=== PATIENT | male | born 1990 | race Caucasian/White ===

== ENCOUNTER 2020-02-29 19:17 | Emergency (ER) | payer SELFPAY ==
[2020-02-29 19:18] VITALS: BP 130/87; PULSE 77; RESP 16; TEMP 36.3; O2SAT 99; BMI 22.1
[2020-02-29 19:28] VITALS: BP 121/81; PULSE 67; RESP 14; O2SAT 99
--- NOTE | 2020-02-29 19:53 | ED.VIS.GEN ---
History of Present Illness Chief Complaint: Chest Pain Informant: Patient Narrative: Patient presents the emergency department with a left-sided sharp chest pain and a cough. He tells me symptoms began last night after he woke up to go in for his third shift work. He states his cough is not that bad but he is producing some phlegm and occasionally has some bright red blood mixed with it. Cough seems to make the pain worse in the chest as well as palpation. No fevers. History of asthma for which he takes albuterol as needed. He states normally his asthma is very well controlled. He has not felt wheezing. He does note some nasal congestion. He denies any nosebleed. He left work last night after discussion with his employer. One concern was Covid. - Past Medical History (1) Sinus bradycardia Status: Chronic (2) WPW (Tpwoa-Lxpliaeuf-Bcoku syndrome) Status: Chronic Past Medical History - Allergies and Home Meds Allergies/Adverse Reactions: Allergies azithromycin Allergy (Severe, Verified 02/29/20 19:20) Anaphylaxis diphenhydramine HCl [From Benadryl] Allergy (Severe, Verified 02/29/20 19:20) Rash Penicillins Allergy (Severe, Verified 02/29/20 19:20) Hives ibuprofen Adverse Reaction (Severe, Verified 02/29/20 19:20) Increased Asthma symptoms Primary Care Physician: Care Physician,No Primary [Primary Care Provider] - Prior records reviewed: Yes Past Medical History: - - Asthma Surgical History: noncontributory Smoking Status: Never smoker Alcohol: Rare Drugs: None Review of Systems General: Denies: Chills, Fever, Sweats Eyes: Denies: Visual changes - bilaterally, Diplopia ENT: Denies: Rhinorrhea, Sore throat Cardiovascular: Reports: Chest pain. Denies: Palpitations Respiratory: Reports: Cough, Sputum, - - intermittent red streaks in sputum. Denies: Dyspnea, Dyspnea on exertion Gastrointestinal: Denies: Abdominal pain, Nausea, Vomiting, Diarrhea, Melena, Hematochezia Genitourinary: Denies: Dysuria, Hematuria, Frequency Musculoskeletal: Denies: Back pain, Extremity Pain Skin: Denies: Rash, Wounds Neurological: Denies: Headache, Weakness, Numbness Physical Exam Vital Signs/Narrative: Vital Signs Temp Pulse Resp BP Pulse Ox 02/29/20 19:28 67 14 121/81 H 99 02/29/20 19:18 97.4 F L 77 16 130/87 H 99 Inital Vital Signs reviewed: Yes General: Well nourished, Well developed, No Acute Distress Head: Normocephalic, Atraumatic Eyes: Perrl, EOMI ENT: Moist mucous membranes, No rhinorrhea Neck: Supple, Nontender Cardiovascular: Regular rate, Regular rhythm, No murmurs Respiratory: No distress, CTA bilaterally, Chest nontender, Chest tenderness - Intermittent hemoptysis tenderness to palpation to the left mid and lower costochondral border. Reproduces his pain. Abdomen: Soft, Nontender, Nondistended, Normal bowel sounds Back: Nontender, Normal Inspection Extremities: Nontender, No edema Skin: Normal color, No rash Neurological: Alert, Oriented x3, Cranial nerves II-XII grossly intact, Normal Strength, Normal Sensation Psychological: Normal affect, Normal Mood Diagnostic/Tx/Re-eval Clinical Impression(s) from Imaging Studies Chest X-Ray 02/29/20 20:00 IMPRESSION: Left apical capping. Question small left effusion. Otherwise unremarkable radiograph. Electronically Signed: Manuel Herring, at 21:45 EDT Tel , Service support , - EKG Initial EKG Interpretation: Sinus Rhythm - EKG demonstrates a normal sinus rhythm at a rate of 60. I do not see a delta wave. He reports a history of WPW - Medical Decision Making I think the patient most likely has a viral rhonchi to us with musculoskeletal chest pain. His Covid test will be pending. I do not see indication for antibiotics at this time. Follow-up with primary care return if worsening or concerns I will take him off of work due to the possibility of COVID-19 ED Disposition - Plan for ED Patient: Disposition: Home or Assisted Living Diagnosis: Bronchitis Instructions: Acute Bronchitis Referrals: Robyn High MD [STAFF PHYSICIAN] - As Needed (for primary care)
--- NOTE | 2020-02-29 19:58 | EKG12_ITS ---
Test Reason : CP Blood Pressure : / mmHG Vent. Rate : 060 BPM Atrial Rate : 060 BPM P-R Int : 122 ms QRS Dur : 094 ms QT Int : 390 ms P-R-T Axes : 054 071 027 degrees QTc Int : 390 ms Normal sinus rhythm Normal ECG Confirmed by SYLVIA VALDEZ, STEPHANIE ([id number]), editor index TAMARA KHALIL ([id number]) on 03/06/2020 11:53:55 AM Referred By: Confirmed By:STEPHANIE WARD MD
--- NOTE | 2020-02-29 20:00 | RAD_ITS ---
STUDY: X-RAY CHEST REASON FOR EXAM: Male, 29 years old. CHEST PAIN, SPITTING UP BLOOD TECHNIQUE: Single frontal view of the chest. COMPARISON: 07/03/2016 FINDINGS: Cardiac silhouette unremarkable. Pulmonary vascularity unremarkable. Aorta unremarkable. No focal airspace opacities. Reidentified left apical capping possible small left effusion. Upper abdomen unremarkable. Osseous structures intact. No pneumothorax. RAD/Chest 1 View (Portable) IMPRESSION: Left apical capping. Question small left effusion. Otherwise unremarkable radiograph. Electronically Signed: Manuel Herring, at 21:45 EDT Tel , Service support ,
[2020-02-29 20:19] VITALS: BP 115/69; PULSE 59; RESP 18; O2SAT 99
[2020-02-29 21:29] VITALS: BP 121/57; PULSE 57; RESP 16; O2SAT 99
[2020-02-29 22:01] VITALS: BP 113/74; PULSE 57; RESP 18; O2SAT 98
== END 2020-02-29 22:02 | disposition home or self-care (01) ==
PROVIDERS: Emergency Provider Emergency Medicine
DX: J40 Bronchitis, not specified as acute or chronic (principal); R04.2 Hemoptysis
CPT/HCPCS: 71045; 87635; 93005; 99283; A4216; U0003

== ENCOUNTER 2020-05-17 19:08 | Emergency (ER) | payer OTHER, SELFPAY ==
[2020-05-17 19:08] VITALS: BP 136/74; PULSE 72; RESP 16; TEMP 36.7; O2SAT 97
--- NOTE | 2020-05-17 19:34 | ED.VIS.URI ---
History of Present Illness Chief Complaint: Cough Informant: Patient Onset: Weeks - 1.5-2 Context: Gradual Onset Timing: Continuous Quality: Occasionally productive, yellow sputum, no blood Location: Chest Current Severity: Moderate Maximum Severity: Moderate Worsened by: - - Nothing Relieved by: - - Nothing Associated Symptoms: Nasal Congestion, Shortness of Breath, Chest Pain, Productive Cough, - - Fevers/chills. Negative for: Headache, Sinus Pressure, Nausea, Vomiting, Diarrhea Narrative: Patient states he has recently traveled to the [facility] twice. No contact with persons that he knows of with COVID-19, and he has not had it that he knows of. He states he has asthma, he lives in [place] some of the year and he does not have asthma issues when he is there, but when he is here the cold weather seems to trigger his asthma and he has mild issues almost daily. Now it is a little worse, not severe, but he is feeling tightness in his chest and some trouble breathing in context of what feels like a chest cold/bronchitis for the past 1.5-2 weeks. - Past Medical History (1) Asthma Status: Chronic (2) WPW (Sxgzs-Iqrwvypcv-Rrgzi syndrome) Status: Chronic Past Medical History - Allergies and Home Meds Allergies/Adverse Reactions: Allergies azithromycin Allergy (Severe, Verified 05/17/20 19:11) Anaphylaxis diphenhydramine HCl [From Benadryl] Allergy (Severe, Verified 05/17/20 19:11) Rash Penicillins Allergy (Severe, Verified 05/17/20 19:11) Hives ibuprofen Adverse Reaction (Severe, Verified 05/17/20 19:11) Increased Asthma symptoms Primary Care Physician: Care Physician,No Primary [Primary Care Provider] - Surgical History: noncontributory Smoking Status: Never smoker Review of Systems General: Reports: Chills, Fever - Low-grade up to 100.5, Malaise. Denies: Sweats Eyes: Denies: Visual changes - bilaterally, Diplopia ENT: Reports: Rhinorrhea - With congestion, no sinus pain. Denies: Bilateral ear pain, Sore throat Cardiovascular: Reports: Chest pain - Tightness. Denies: Palpitations Respiratory: Reports: Dyspnea, Cough, Sputum Gastrointestinal: Denies: Abdominal pain, Nausea, Vomiting, Diarrhea, Melena, Hematochezia Genitourinary: Denies: Dysuria, Hematuria, Frequency Musculoskeletal: Denies: Myalgias, Back pain, Swelling, Extremity Pain Skin: Denies: Rash, Wounds Neurological: Denies: Headache, Weakness, Numbness Physical Exam Vital Signs/Narrative: Vital Signs Temp Pulse Resp BP Pulse Ox 05/17/20 19:08 98.0 F 72 16 136/74 H 97 Inital Vital Signs reviewed: Yes General: Well nourished, Well developed Head: Normocephalic, Atraumatic Eyes: Perrl, EOMI Nose: Normal Inspection, No Rhinorrhea Mouth/Throat: Normal Inspection, No Posterior Erythema Neck: Supple, Nontender, No Lymphadenopathy, No Meningismus Cardiovascular: Regular rate, Regular rhythm, No murmurs Respiratory: No distress, Chest nontender, Wheezing. Negative for: Rales, Rhonchi Abdomen: Soft, Nontender, Nondistended, Normal bowel sounds Back: Nontender, Normal Inspection Extremities: Nontender, No edema Skin: Normal color, No rash, No Trauma Neurological: Alert, Oriented x3, Cranial nerves II-XII grossly intact, Normal Strength, Normal Sensation, Normal Gait Psychological: Normal affect, Normal Mood Diagnostic/Tx/Re-eval Clinical Impression(s) from Imaging Studies Chest X-Ray 05/17/20 20:23 IMPRESSION: Normal x-ray examination of the chest. Electronically Signed: Ventura Foster MD at 20:57 EST , Service support , - Medical Decision Making Patient feels better after a duo nebulizer treatment. His Covid test is negative and his chest x-ray is normal. No antibiotics indicated, but I think it is reasonable to treat him for an asthma exacerbation and prescribed him a rescue inhaler. He is in agreement and feels better and will be discharged home to follow-up with a PCP. Referred to the next doctor on the unassigned list. ED Disposition - Plan for ED Patient: Disposition: Home or Assisted Living Diagnosis: Acute asthmatic bronchitis Instructions: ED Asthma, Acute (Adult), ED Bronchitis with Wheezing (Adult) Prescriptions: Prednisone [Deltasone] 40 mg PO DAILY #10 tab Prescription Printed Albuterol Inhaler [Ventolin Hfa] 1 - 2 puff INHALATION Q4H PRN PRN #1 inhaler PRN Reason: Wheezing Prescription Printed Referrals: Abdon Castillo MD [STAFF PHYSICIAN] - 1-2 Weeks
[2020-05-17 19:42] VITALS: PULSE 63; RESP 16
[2020-05-17] MEDS: Ipratropium/Albuterol Sulfate 3 ML AMPUL.NEB INHALATION (19:42)
[2020-05-17 19:46] VITALS: O2SAT 96
--- NOTE | 2020-05-17 20:23 | RAD_ITS ---
STUDY: X-RAY CHEST REASON FOR EXAM: Male, 29 years old. chest congestion,cough and no energy since . HX OF ASTHMA TECHNIQUE: Single PA view of the chest. COMPARISON: 02/29/2020. FINDINGS: The lungs are clear and expanded. There is no demonstrated pleural abnormality. Normal size heart. Normal mediastinum and zachary. Normal visualized pulmonary arteries. Normal visualized aortic arch and descending thoracic aorta. Normal visualized thoracic spine. Normal visualized ribs, clavicles, and shoulders. There is no demonstrated abnormality of the visualized soft tissue structures of the upper abdomen. RAD/Chest 1 View (Portable) IMPRESSION: Normal x-ray examination of the chest. Electronically Signed: Ventura Foster MD at 20:57 EST , Service support ,
[2020-05-17 21:36] VITALS: BP 100/65; PULSE 51; PULSE 53; RESP 16; O2SAT 98; O2SAT 99
[2020-05-17] MEDS: predniSONE 20 MG Tablet 40 MG PO (21:38)
== END 2020-05-17 21:39 | disposition home or self-care (01) ==
PROVIDERS: Emergency Provider Emergency Medicine
DX: Z79.899 Other long term (current) drug therapy (principal); I45.6 Pre-excitation syndrome; R50.9 Fever, unspecified; J45.901 Unspecified asthma with (acute) exacerbation
CPT/HCPCS: 71045; 87426; 94640; 99283

== ENCOUNTER → 2020-06-05 16:58 | Outpatient (CLI) | payer OTHER, SELFPAY ==
[2020-06-05 16:42] VITALS: BMI 21.3
--- NOTE | 2020-06-05 17:00 | RAD_ITS ---
STUDY: X-RAY - RIGHT HAND, ATTENTION INDEX FINGER REASON FOR EXAM: Male, 29 years old. right index finger caught in machine at work 2 days ago, pain/abrasion TECHNIQUE: 3 view(s) of the finger were obtained. COMPARISON: None. FINDINGS: Normal metacarpal head. Normal metacarpophalangeal joint. Normal proximal phalanx. Normal middle phalanx. Normal distal phalanx. Normal proximal interphalangeal joint. Normal distal interphalangeal joint. RAD/Finger(s) Min 2 Views IMPRESSION: Normal x-ray examination of the finger. Electronically Signed: Joseph Parker MD at 19:58 EST , Service support ,
== END ==
LOC: MTRAD 17:00
PROVIDERS: Referring Provider Physician Assistant Surgical; Visit Provider Physician Assistant Surgical
DX: S60.021A Contusion of right index finger without damage to nail, initial encounter (principal); X58.XXXA Exposure to other specified factors, initial encounter; Y93.9 Activity, unspecified; Y92.9 Unspecified place or not applicable; Y99.9 Unspecified external cause status
CPT/HCPCS: 73140

== ENCOUNTER 2024-12-03 20:33 | Emergency (ER) | payer OTHER, MEDICAID, SELFPAY ==
[2024-12-03 20:34] VITALS: BP 144/79; PULSE 71; RESP 16; TEMP 37.2; O2SAT 99; BMI 19.1
--- NOTE | 2024-12-03 21:21 | EDS_ITS ---
HPI History of Present Illness HPI Narrative: Patient presents with a laceration to his left calf that occurred today. Patient states that occurred this morning while he was at work. Patient states that he applied pressure to the area. Patient states the bleeding has been persistent. 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 Patient states he was told he may need to come for sutures. Patient states his last tetanus was approximately 4 years ago. Patient denies any pare sthesias or weakness. Patient denies any other injuries. Chief Complaint: Laceration Informant: patient Occured/Mechanism Comment: Cut on a piece of metal Onset/Context/Timing Onset: Today Context: Sudden Onset Timing: Continuous Location: Left calf Worsened by: Nothing Relieved by: Nothing Narrative Tetanus Immunization: <5 years [facility] Medical History (Updated 12/03/24 @ 22:[address] Kale Corrales DO) Asthma Sinus bradycardia WPW (Wamnt-Srdvjqoqu-Nuesf syndrome) Home Medications Medication Instructions Recorded Last Taken Type albuterol sulfate 90 mcg/actuation 2 puff inhalation Q 6H PRN Wheezing 04/15/18 Unknown History aerosol inhaler (Ventolin HFA) albuterol sulfate 90 mcg/actuation 1 - 2 puff inhalati on Q4H PRN PRN 05/17/20 Unknown Rx aerosol inhaler Wheezing ##1 ondansetron HCl 4 mg tablet 4 mg PO Q8H PRN nausea and 07/25/20 Unknown Rx (Zofran) vomiting #7 tabs Allergy/AdvReac Type Severity Reaction Status Date / Time azithromycin Allergy Severe Anaphylaxis Verified 07/25/20 13:45 diphenhydramine HCl (From Allergy Severe Rash Verified 07/25/20 13:45 Benadryl) Penicillins Allergy Severe Hives Verified 07/25/20 13:45 ibuprofen AdvReac Severe Increased Verified 07/25/20 13:45 Asthma symptoms Family History Other Asthma Diabetes Heart disease Hypertension Surgical History History of cholecystectomy History of appendectomy History of cardiac radiofrequency ablation (~1997) Social History Smoking Status: Never smoker Smokeless tobacco user: chewing tobacco alcohol intake: never ROS ROS ED Constitutional Constitutional ED: Denies chills or fever(s) Eyes Eyes: Denies blurry vision or change in vision ENT ENT ED: Denies rhinorrhea or sore throat Cardiovascular Cardiovascular: Denies chest pain or palpitations Respiratory/Chest Respiratory/Chest: Denies cough or dyspnea Gastrointestinal Gastrointestinal: Denies nausea or vomiting Genitourinary Genitourinary ED: Denies dysuria or hematuria Musculoskeletal Musculoskeletal: Denies back pain or neck pain Integumentary Denies abscess or rash Neurologic Neurologic: Denies headache(s) or weakness Allergic/Immunologic Allergic/Immunologic ED: Denies mouth swelling or urticaria EXAM Physical Exam Const Vital Signs: 12/03/24 20:34 Temperature 98.9 F Temperature Source Oral Pulse Rate 71 Respiratory Rate 16 Blood Pressure 144/79 H Blood Pressure Mean 100 Pulse Ox 99 Oxygen Delivery Method Room Air Positive well nourished and well developed General Appearance ED: well developed and NAD HEENT Reports moist mucous membranes Neck full ROM and supple Extremity Extremity Narrative: There is a 1 cm full-thickness linear laceration over the posterior aspect of the left calf. There is mild bleeding noted. There is mild gapping of the wound margins. There are no foreign bodies noted. There is mild tenderness. There is no erythema or warmth noted. There is full range of motion of the left lower extremity. Neuro oriented x3, CN's II-XII intact bilaterally, moves all extremities and no sensory deficits noted Sensorium / Orientation: alert Motor Exam: strength 5/5 throughout MDM MDM MDM Narrative Medical decision making narrative: The wound was cleaned and irrigated with copious amounts of normal saline. The wound was anesthetized with 1% lidocaine with epinephrine locally. The wound was closed with 1 simple interrupted #4-0 nylon suture under sterile technique. Patient tolerated the procedure well. Bacitracin dressing was applied. Patient was instructed to keep the wound clean and dry. Patient was instructed to keep his leg elevated. Patient was instructed to follow-up with his primary care physician in 5 to 7 days. Patient was instructed to return if worse in any way. Patient understood and was agreeable with the plan. All questions were answered. Procedures Lacerations Left calf: Length: 1 cm Depth: Sub Q Shape: Linear Prep: Sterile Conditions Laceration repair: Irrigated, Lidocaine with epi, Local and Skin sutures Number of Sutures/[place]: 1 Suture Information: Ethilon, Simple and 4-0 Discharge Plan Triage Chief Complaint: Laceration ED Provider: Kale Corrales Dx/Rx/DC Orders Clinical Impression: Laceration of left calf without complication, Elevated blood pressure reading Instructions: ED Laceration, All Closures, ED Laceration Extremity Prescriptions: No Action Ventolin HFA 90 mcg/actuation HFA aerosol inhaler 2 puff INHALATION Q6H PRN (Reason: Wheezing) ondansetron HCl [Zofran] 4 mg tablet 4 mg PO Q8H PRN (Reason: nausea and vomiting) Qty: 7 0RF albuterol sulfate 1 INHALER inhaler 1 - 2 puff INHALATION Q4H PRN PRN (Reason: Wheezing) Qty: 1 0RF Primary Care Provider: Care Physician,No Primary Referrals: Jeremiah Caputo MD [Med Staff - Auto Driver] - 7 Days for suture removal Care Physician,No Primary [Primary Care Provider] - Print Language: Japanese Disposition Disposition: Home, Self Care
--- OUTSIDE RECORDS SUMMARY | 2024-12-03 21:21 | XMS RPT_ITS | CCD ---
Author Organization [facility] Care Team Providers Care Ticket Dispenser Changer Name Role Phone PHYSICIAN, NONE Primary Care Unavailable JORGE RICHARDSON Admitting Unavailable JORGE RICHARDSON Attending Unavailable ALFONSO KHALIL Consulting Unavailable ROXIE TRINH Consulting Unavailable ZOHREH HEIN Consulting Unavailable JORGE MORENO Consulting Unavailable ALFONSO KHALIL Admitting Unavailable ALFONSO KHALIL Attending Unavailable PHYSICIAN, NONE Primary Care Unavailable ROXIE TRINH Attending Unavailable PHYSICIAN, NONE Primary Care Unavailable PHYSICIAN, NONE Primary Care Unavailable KELSEY MONSALVE Attending Unavailable ROXIE TRINH Referring Unavailable BEN BAIN Admitting Unavailable BEN BAIN Attending Unavailable BEN BAIN Primary Care Unavailable NO, DOCTOR ON Consulting Unavailable MELVINA ASIF DO Admitting Unavailable MELVINA ASIF DO Attending Unavailable NO, DOCTOR ON Referring Unavailable MELVINA ASIF DO Primary Care Unavailable NO, DOCTOR ON Consulting Unavailable GLADSTONE, SAMIRA S Admitting Unavailable GLADSTONE, SAMIRA S Attending Unavailable GLADSTONE, SAMIRA S Primary Care Unavailable NO, DOCTOR ON Consulting Unavailable NO, DOCTOR ON Referring Unavailable Agapito Lagunas MD Primary Care Provider Pcp, None Primary Care Provider UnavailKya Hilliard Attending Unavailable MICHELLE HERRERA Attending Unavailable MICHELEL HERRERA Referring Unavailable PCP, NONE Primary Care Unavailable GRISELDA MORFIN Primary Care Unavailable CARLOS PEREZ Attending Unavailable ANUSHKA ALEGRIA Attending Unavailable AGAPITO LAGUNAS Referring Unavailable PCP, NONE Primary Care Unavailable NANCY BARFIELD Attending Unavailable NANCY BARFIELD Referring Unavailable NAVJOT, GRISELDA Primary Care Unavailable OZKAZANC, ISMET Referring Unavailable OZKAZANC, ISMET Attending Unavailable JAVIER, MICHELLE Attending Unavailable MICHELLE HERRERA Referring Unavailable PCP, NONE Primary Care Unavailable NAVJOT, GRISELDA Attending Unavailable NAVJOT, GRISELDA Primary Care Unavailable NAVJOT, GRISELDA Attending Unavailable NAVJOT, GRISELDA Primary Care Unavailable DAMARGIET, NANCY Attending Unavailable DAUBERT, NANCY Referring Unavailable OZKAZANC, ISMET Primary Care Unavailable DAMARGIET, NANCY Attending Unavailable PCP, NONE Referring Unavailable OZKAZANC, ISMET Attending Unavailable OZKAZANC, ISMET Referring Unavailable OZKAZANC, ISMET Primary Care Unavailable OZKAZANC, ISMET Admitting Unavailable NAVJOT, GRISELDA Attending Unavailable NAVJOT, GRISELDA Primary Care Unavailable NAVJOT, GRISELDA Primary Care Unavailable ANTONIETA JONES Attending Unavailable PCP, NONE Primary Care Unavailable MIXON, ELO Attending Unavailable MIXON, ELO Admitting Unavailable Allergies Allergy Classification Reported Allergen(s) Allergy Type Date of Onset Reaction(s) Facility (1 source) Aspirin Drug Allergy [facility] Repository (1 source) diphenhydrAMINE Drug Allergy [facility] Repository (1 source) Penicillin Drug Allergy [facility] (2 sources) Penicillins Propensity to adverse reactions to drug 05-10-20 Hives, Edema [facility] (2 sources) Benadryl Allergy Propensity to adverse reactions to drug 05-10-20 Formerly named [facility] Medications Current Medications Medication Drug Class(es) Dates Sig (Normalized) Sig (Original) azithromycin 250 mg oral tablet (1 source) Macrolide Antimicrobial Start: 05-26-2024 End: 05-31-2024 azithromycin (Z-OANH) 250 MG tablet dose pack Indications: Lower respiratory infection 2 tablets on Day 1, then 1 tab daily for 4 days (Days 2 to 5) 6 tablet 05/26/2024 05/31/2024 Active pantoprazole 40 mg delayed release oral tablet (2 sources) Proton Pump Inhibitor Start: 05-10-2024 take 1 tablet by mouth once daily before breakfast pantoprazole (PROTONIX) 40 MG tablet Take 1 tablet by mouth every morning (before breakfast). 30 tablet 3 05/10/2024 Active predniSONE 20 mg oral tablet (1 source) Start: 05-26-2024 End: 06-02-2024 take 1.5 tablets by mouth twice daily predniSONE (DELTASONE) 20 MG tablet Take 1.5 tablets by mouth two times a day for 7 days. 21 tablet 05/26/2024 06/02/2024 Active Completed/Discontinued Medications Medication Drug Class(es) Dates Sig (Normalized) Sig (Original) Acetaminophen (1 source) Start: 05-26-2024 End: 05-26-2024 735 mg (15 mg/kg 49 kg), Intravenous, Administer over 15 Minutes, On Fri05/26/24 at 1352, ONCE, 1 dose [id number] 60 actuat albuterol 0.09 mg/actuat metered dose inhaler (5 sources) beta2-Adrenergic Agonist Start: 05-26-2024 End: 05-26-2024 1 packet, Inhalation, PRIOR TO DISCHARGE, 1 dose, On Fri05/26/24 at 1606, packet given to pt. per physician for home self.administrati on Start: 05-26-2024 End: 05-26-2024 2.5 mg, Nebulization, NOW, 1 dose, On Fri05/26/24 at 1602 Start: 05-25-2024 Albuterol Sulf ate 108 (90 Base) MCG/ACT AEPB Inhale 1 Inhalation into the lungs as needed. 1 each 05/25/2024 Active Start: 05-18-2024 End: 05-18-2024 2.5 mg, Nebulization, ONCE R T, 1 dose, On Fri05/18/24 at 1345 Start: 05-17-2024 Albuterol Sulf ate 108 (90 Base) MCG/ACT AEPB Inhale 1 Inhalation into the lungs as needed. 1 each 3 05/17/2024 Active albuterol 0.833 mg/ml / ipratropium bromide 0.167 mg/ml inhalation solution (2 sources) Anticholinergic, beta2-Adrenergic Agonist Start: 05-26-2024 End: 05-26-2024 6 mL, Nebulization, Once, 1 dose, On Fri05/26/24 at 1316 LOCM iohexol (OMNIPAQUE 350MG/ML) injection 75 mL (1 source) Start: 05-26-2024 End: 05-26-2024 take 75 mL by mouth once 75 mL, Intravenous, ONCE, 1 dose, On Fri05/26/24 at 1305, PO dose for age 13 years to 15 years: Mix 21 cc of Omnipaque 350 in water/juice/clear liquid (non carbonated) to total of 600 cc (20oz). Give 2 doses of 300 cc 15 minutes apart. Scan time 30-60 minutes after first dose. PO dose for age 15 years to 18 years: Mix 28 cc of Omnipaque 350 in water/juice/clear liquid (non carbonated) to total of 800 cc (27oz). Give 2 doses of 400 cc 15 minutes apart. Scan time 30-60 minutes after first dose. PO dose for age > 18 years: Mix 50 cc of Omnipaque 350 in water/juice/clear liquid (non carbonated) to total of 950 cc (32oz). Give 2 doses of 475 cc 15 minutes apart. Scan time 30-60 minutes after first dose., Radiology methylPREDNISolone 125 mg injection (1 source) Corticosteroid Start: 05-26-2024 End: 05-26-2024 60 mg, Intravenous, NOW, 1 dose, On Fri05/26/24 at 1345 50 ml sodium chloride 9 mg/ml injection (1 source) Start: 05-26-2024 End: 05-26-2024 1,000 mL, Intravenous, Administer over 2 Hours, On Fri05/26/24 at 1345, ONCE, 1 dose Problems Active Problems Problem Classification Problem Date Documented Da te Episodic/Chronic Anxiety disorders (1 source) Generalized anxiety disorder; Translations: [Generalized anxiety disorder] Onset: 06-04-2024 Chronic Asthma (9 sources) Mild intermittent asthma; Translations: [Mild intermittent asthma, uncomplicated] Onset: 05-10-2024 05-18-2024 Chronic Immunizations and screening for infectious disease (1 source) Encounter for screening for infections with a predominantly sexual mode of transmission; Translations: [Encounter for screening for infections with a predominantly sexual mode of transmission] Onset: 10-29-2024 Episodic Miscellaneous mental health disorders (1 source) Primary insomnia; Translations: [Primary insomnia] Onset: 06-04-2024 Chronic Mood disorders (1 source) Major depressive disorder, recurrent, moderate; Translations: [Major depressive disorder, recurrent, moderate] Onset: 06-04-2024 Chronic Nonspecific chest pain (1 source) Chest pain Onset: 09-22-2024 Episodic Other gastrointestinal disorders (2 sources) Loose stool; Translations: [Other fecal abnormalities] Onset: 05-17-2024 05-17-2024 Episodic Other lower respiratory disease (1 source) Lower respiratory tract infection; Translations: [Unspecified acute lower respiratory infection] 05-26-2024 Episodic Other nutritional; endocrine; and metabolic disorders (4 sources) Weight loss; Translations: [Abnormal weight loss] Onset: 05-10-2024 Resolved: 05-17-2024 05-17-2024 Episodic Substance-related disorders (1 source) Nicotine dependence, unspecified, uncomplicated; Translations: [Nicotine dependence, unspecified, uncomplicated] Onset: 05-26-2024 Chronic Unclassified (1 source) Contact with and (suspected) exposure to covid-19; Translations: [Contact with and (suspected) exposure to covid-19] Onset: 05-26-2024 Past or Other Problems Problem Classification Problem Date Documented Da te Episodic/Chronic Abdominal pain (5 sources) Epigastric pain; Translations: [Epigastric pain] Onset: 05-10-2024 Resolved: 05-17-2024 05-17-2024 Episodic Acute bronchitis (2 sources) Acute bronchiolitis due to respiratory syncytial virus; Translations: [Acute bronchiolitis due to respiratory syncytial virus] Onset: 05-26-2024 05-26-2024 Episodic Allergic reactions (2 sources) Allergy status to penicillin; Translations: [Allergy status to other drugs, medicaments and biological substances status] Onset: 05-26-2024 Episodic Lymphadenitis (1 source) Localized enlarged lymph nodes; Translations: [Localized enlarged lymph nodes] Onset: 05-26-2024 Episodic Other aftercare (1 source) Other half-way (current) drug therapy; Translations: [Other vermin exterminator (current) drug therapy] Onset: 05-26-2024 Episodic Other gastrointestinal disorders (1 source) Other fecal abnormalities; Translations: [Other fecal abnormalities] Onset: 05-17-2024 Episodic Other lower respiratory disease (1 source) Personal history of other diseases of the respiratory system; Translations: [Personal history of other diseases of the respiratory system] Onset: 05-26-2024 Episodic Other nutritional; endocrine; and metabolic disorders (1 source) Abnormal weight loss; Translations: [Abnormal weight loss] Onset: 05-17-2024 Episodic Other nutritional; endocrine; and metabolic disorders (1 source) Body mass index (BMI) 19.9 or less, adult; Translations: [Body mass index (BMI) 19.9 or less, adult] Onset: 05-26-2024 Episodic Other screening for suspected conditions (not mental disorders or infectious disease) (1 source) Encounter for screening for lipoid disorders; Translations: [Encounter for screening for lipoid disorders] Onset: 05-15-2024 Episodic Results Test Name Value Interpretation Reference Range Facil ity GC AND CHLAMYDIA AMPLIFIED P ROBEon 10-29-2024 GC AND CHLAMYDIA AMPLIFIED PROBE GC AMPLIFIED AR Negative Negative CHLAMYDIA, DNA PROBE Negative Negative Normal Negative [facility] Comment on above: Performed By: #### 4 [id number], [id number], [id number], [id number] #### [place] [address] [place] HEPATITIS B SURFACE ANTIBODY on 10-29-2024 HEPATITIS B SURFACE ANTIBODY Non-Reactive Normal Nonreactive [facility] Comment on above: Performed By: #### 4 [id number], [id number], [id number], [id number] #### [place] [address] [place] HEPATITIS B SURFACE ANTIGENo n 10-29-2024 HEP B SURF AG Non-Reactive Normal [facility] Comment on above: Performed By: #### 4 [id number], [id number], [id number], [id number] #### [address] [address] [place] HEPATITIS C ANTIBODYon 10-29 HEPATITIS C ANTIBODY Non-Reactive Normal Nonreac tive, Indeterminate [facility] Comment on above: Performed By: #### 4 [id number], [id number], [id number], [id number] #### [address] [address] [place] HIV ANTIBODY - GENESISon HIV-1 AND HIV-2 ANTIBODIES Non-Reactive Normal Nonreactive [facility] Comment on above: Result Comment: No d etectable HIV-1p24 Antigen or HIV-1/HIV2 antibodies. If recent HIV exposure is suspected or reported, conduct HIV-1 ISAAC or request a new specimen and repeat the algorithm according to CDC guidance, available at: http://www.cdc.gov/hiv/guidelines Guidelines and Recommendations HIV/AIDS CDC These guidelines are intended for clinicians, public health professionals, program managers in clinical and non-clinical settings, persons at risk for HIV infection, and the general public. www.cdc.gov Performed By: #### 4 [id number], [id number], [id number], [id number] #### [address] [place] [address] TREPONEMAL PALLIDUM ANTIBODY on 10-29-2024 SYPHILIS TREPONEMA ANTIBODY Non-Reactive Normal [facility] Comment on above: Performed By: #### 4 [id number], [id number], [id number], [id number] #### [address] TRICHOMONAS AMPLIFIED PROBEo n 10-29-2024 TRICHOMONAS AMPLIFIED PROBE Negative Normal Negative [facility] Comment on above: Performed By: #### 4 [id number], [id number], [id number], [id number] #### [address] BNPon 05-26-2024 Interpretation and review of laboratory results Normal [facility] Nucleated RBC/100 WBC (Bld) [Ratio] 81 pg/mL NINF - 299 pg/mL [facility] Comment on above: Negative: Heart Fail ure Unlikely [facility] BRAIN NATRIURETIC PEPTIDEon 05-26-2024 Natriuretic peptide B (Bld) [Mass/Vol] 81 pg/mL Normal <=299 [facility] Comment on above: Result Comment: Nega tive: Heart Failure Unlikely Performed By: #### 4 [id number], [id number], [id number], [id number] #### [address] CBC AND DIFFERENTIALon 05-26 ABSOLUTE BASOPHIL 0.0 x10*3/uL Normal 0.0-0.1 [facility] Comment on above: Performed By: #### 4 [id number], [id number], [id number], [id number] #### [address] ABSOLUTE EOSINOPHIL 0.2 x10*3/uL Normal 0.1-0.3 [facility] Comment on above: Performed By: #### 4 [id number], [id number], [id number], [id number] #### [address] ABSOLUTE IMMATURE GRANULOCYTES 0.0 x10*3/uL Normal 0.0-0.1 [facility] Comment on above: Performed By: #### 4 [id number], [id number], 92185969, [id number] #### [address] ABSOLUTE LYMPH 1.0 x10*3/uL Low 1.2-3.3 [facility] Comment on above: Performed By: #### 4 [id number], 75492907, 02194168, [id number] #### [address] ABSOLUTE MONO 1.3 x10*3/uL High 0.2-0.6 [facility] Comment on above: Performed By: #### 4 [id number], [id number], [id number], [id number] #### [address] ABSOLUTE NEUTROPHIL 8.4 x10*3/uL High 2.4-6.6 [facility] Comment on above: Performed By: #### 4 3486084, 62446511, 07676978, 30008901 #### [address] Basophils/100 WBC (Bld) 0.4 % Normal [facility] Comment on above: Performed By: #### 4 [id number], 36048116, 60131899, 70368500 #### [address] Eosinophils/100 WBC (Bld) 1.4 % Normal [facility] Comment on above: Performed By: #### 4 [id number], 55320137, 48624994, [id number] #### [address] Erythrocyte distribution width (RBC) [Ratio] 12.6 % Normal 11.5-14.5 [facility] Comment on above: Performed By: #### 4 3961990, 06775249, 59811477, 02115070 #### [address] Hematocrit (Bld) [Volume fraction] 45.4 % Normal 37.7-51.1 [facility] Comment on above: Performed By: #### 4 6120357, 91956784, 07127886, [id number] #### [address] Hemoglobin (Bld) [Mass/Vol] 15.4 g/dL Normal 12.8-17.7 [facility] Comment on above: Performed By: #### 4 7794987, 31292710, 50979813, 53113944 #### [address] Immature granulocytes/100 WBC (Bld) 0.3 % Normal [facility] Comment on above: Performed By: #### 4 6914550, 44370138, 62920302, 56317409 #### [address] Lymphocytes/100 WBC (Bld) 9.3 % Normal [facility] Comment on above: Performed By: #### 4 5565762, 54649132, 77184270, 68302439 #### [address] MCH (RBC) [Entitic mass] 30.6 pg Normal 27.0-34.2 [facility] Comment on above: Performed By: #### 4 4509495, 84630119, 79138218, 74797375 #### [address] MCHC (RBC) [Mass/Vol] 33.9 g/dL Normal 31.4-36.2 [facility] Comment on above: Performed By: #### 4 2944988, 43485048, 59397459, [id number] #### [address] MCV (RBC) [Entitic vol] 90.3 fL Normal 80.6-99 [facility] Comment on above: Performed By: #### 4 9948507, 97229613, 61433615, 44553764 #### [address] Monocytes/100 WBC (Bld) 12.0 % Normal [facility] Comment on above: Performed By: #### 4 7098565, 23241717, 21825880, 95814371 #### [place] [address] [place] Neutrophils/100 WBC (Bld) 76.6 % Normal [facility] Comment on above: Performed By: #### 4 7409540, 71205378, 12778868, 31500491 #### [address] NUCLEATED RED BLOOD CELLS AUTO 0.0 % Normal 0.0-1.0 [facility] Comment on above: Performed By: #### 4 3520581, 81460511, 55038490, 05909535 #### [address] PLATELET COUNT 172 x10*3/uL Normal 150-400 [facility] Comment on above: Performed By: #### 4 7975197, 52401341, 82785854, 96662404 #### [address] RED BLOOD CELL COUNT 5.03 x10*6/uL Normal 3.70-5.70 [facility] Comment on above: Performed By: #### 4 0774632, 77435316, 90732688, 53928942 #### [address] WHITE BLOOD CELLS 10.9 x10*3/uL High 4.3-10.3 [facility] Comment on above: Performed By: #### 4 4529487, 20654161, 88066860, [id number] #### [address] CBC with DifferentialOrdered By: Background Lab on 05-26-2024 Absolute Immature Granulocytes 0 [facility] Age [Time] 90.3 fL 80.6 - 99 fL [facility] Age [Time] 30.6 pg 27.0 - 34.2 pg [facility] Age [Time] 33.9 g/dL 31.4 - 36.2 g/dL [facility] B. burgdorferi IgM IB Ql (CSF) 9.3 % [facility] [employer] Basophils (Bld) [#/Vol] 0 10*3/uL G [facility] [employer] [facility] Basophils/100 WBC (Body fld) 0.4 % [facility] [employer] Eosinophils (Bld) [#/Vol] 1 10*3/uL Low [facility] Eosinophils (Bld) [#/Vol] 1.3 10*3/uL High [facility] Eosinophils (Bld) [#/Vol] 0.2 10*3/uL [facility] Eosinophils/100 WBC (Bld) 1.4 % [facility] Erythrocyte distribution width (RBC) [Ratio] 12.6 % 11.5 - 14.5 % [facility] Hematocrit (Bld) [Volume fraction] 45.4 % 37.7 - 51.1 % [facility] Hexanoylglycine (U) [Moles/Vol] 15.4 g/dL 12.8 - 17.7 g/dL [facility] Immature granulocytes/100 WBC (Bld) 0.3 % [facility] Interpretation and review of laboratory results Abnormal [facility] Monocytes/100 WBC (Bld) 12 % [facility] Neurotensin (P) [Mass/Vol] 76.6 % [facility] Neutrophils (Bld) [#/Vol] 8.4 10*3/uL High [facility] Nucleated RBC/100 WBC (Bld) [Ratio] 0 % 0.0 - 1.0 % [facility] Platelets (Bld) [#/Vol] 172 10*3/uL [facility] RBC (Bld) [#/Vol] 5.03 10*6/uL [facility] WBC (Bld) [#/Vol] 10.9 10*3/uL High [facility] COMPREHENSIVE METABOLIC PANE [place] 05-26-2024 Albumin [Mass/Vol] 4.9 g/dL Normal 3.5-5.0 [facility] Comment on above: Performed By: #### 4 [id number], [id number], 88463875, 76942246 #### [place] [address] [place] ALK PHOS 78 U/L Normal 24-126 [facility] Comment on above: Performed By: #### 4 [id number], 49697470, 15455974, 91063672 #### [address] ALT [Catalytic activity/Vol] 20 U/L Normal 4-50 [facility] Comment on above: Performed By: #### 4 [id number], 33186222, 61226102, 58643809 #### [address] [address] Anion gap [Moles/Vol] 8 mmol/L Normal 8-12 [facility] Comment on above: Performed By: #### 4 7292120, 40168696, 61205545, 36897380 #### [address] [address] AST [Catalytic activity/Vol] 35 U/L Normal 3-55 [facility] Comment on above: Performed By: #### 4 8553944, 02244011, 84151165, 77530101 #### [address] [address] Bilirubin [Mass/Vol] 2.0 mg/dL High 0.2-1.6 [facility] Comment on above: Performed By: #### 4 6539873, 94591586, 25562648, 73465272 #### [address] [address] [facility] Calcium [Mass/Vol] 9.9 mg/dL Normal 8.4-10.4 [facility] Comment on above: Performed By: #### 4 7197624, 33680096, 97411049, 38046510 #### [address] [address] Chloride [Moles/Vol] 102 mmol/L Normal 96-109 [facility] Comment on above: Performed By: #### 4 6581016, 07194596, 90031378, 44044678 #### [address] [address] [place] CO2 [Moles/Vol] 26 mmol/L Normal 22-30 [facility] Comment on above: Performed By: #### 4 9236701, 51524985, 29652429, [id number] #### [address] [address] [facility] Creatinine [Mass/Vol] 0.84 mg/dL Normal 0.66-1.25 [facility] Comment on above: Performed By: #### 4 [id number], 82684939, 55979752, 50689325 #### [address] [address] [place] GLOMERULAR FILTRATION RATE ML/MIN/1.73 SQ M.PREDICTED 118.1 mL/min/1.73m*2 Normal >=60.0 [facility] Comment on above: Result Comment: eGFR calculation based on the Chronic Kidney Disease Epidemiology Collaboration (CKD-EPI) equation refit without adjustment for race. Categories in Chronic Kidney Disease (CKD) Category: GFR(mL/min/1.73m^2) Interpretation: G1* 90 or greater Normal or high G2* 60-89 Mild decrease G3a 45-59 Mild to moderate decrease G3b 30-44 Moderate to severe decrease G4 15-29 Severe decrease G5 14 or less Kidney failure *G1&G2: In the absence of evidence of kidney damage, neither GFR category G1 nor G2 fulfill the criteria for CKD Kidney Int Suppl.2013;3:1-150 Performed By: #### 4 [id number], 17020742, 64420374, 96489819 #### [address] [address] [place] Glucose [Mass/Vol] 106 mg/dL High 65-100 [facility] Comment on above: Performed By: #### Cherrie [id number], 05564512, 88254233, 60761193 #### [address] [address] [place] Potassium [Moles/Vol] 4.6 mmol/L Normal 3.6-5.1 [facility] Comment on above: Performed By: #### 4 9850623, 40926003, 45410443, 97068100 #### [address] [place] [address] [place] Protein [Mass/Vol] 8.0 g/dL Normal 6.3-8.2 [facility] Comment on above: Performed By: #### 4 [id number], 16347177, 36621933, 48399870 #### [place] [address] [place] [address] [place] Sodium [Moles/Vol] 136 mmol/L Normal 135-147 [facility] Comment on above: Performed By: #### 4 4603680, 59026171, 69257281, 07701950 #### [place] [address] [place] [address] [place] Urea nitrogen [Mass/Vol] 13 mg/dL Normal 8-26 [facility] Comment on above: Performed By: #### 4 9071296, 53286290, 77266661, [id number] #### [place] [id number] [address] ABDOMEN PELVIS WITH IV CO NTRASTon 05-26-2024 CT ABDOMEN PELVIS WITH IV CONTRAST EXAMINATION: CT ABDOMEN PELVIS WITH IV CONTRAST, 05/26/2024, 3:13 PM EST. HISTORY: Abdominal pain, acute, nonlocalized. COMPARISON: None. TECHNIQUE: CT scan of the abdomen and pelvis was performed with IV contrast. CT dose reduction technique was used, including Automated Exposure Control. FINDINGS: There are areas of tree-in-bud opacities within the right lower lobe compatible with infectious or inflammatory etiology. The abdominal aorta is of normal caliber. Spleen, pancreas, adrenal glands are satisfactory. Gallbladder is surgically absent. No significant liver lesions. Kidneys enhance symmetrically bilaterally. There is no hydronephrosis and no evidence of obstructive uropathy. Mild thickening of the urinary bladder should be correlated with urinalysis to exclude cystitis. There is nonspecific free pelvic fluid which may be reactive. The unopacified loops of small bowel and colon appear satisfactory. There is no free air or obstruction. IMPRESSION: Tree-in-bud opacities within the right lower lobe compatible with infectious or inflammatory etiology. Free pelvic fluid likely reactive. Thickening of the urinary bladder should be correlated with urinalysis to exclude cystitis. Pt states he "can't breath, very wheezy and coughing". Pt states has had symptoms for several weeks and states is getting worse. Pt admits to being seen by a provider last week that had taken him off of his asthma medications last week and has been getting much worse since that time. Normal [employer] [facility] CT Abdomen and Pelvis W cont rast Lito 05-26-2024 Tree-in-bud opacities within the right lower lobe compatible with infectious or inflammatory etiology. Free pelvic fluid likely reactive. Thickening of the urinary bladder should be correlated with urinalysis to exclude cystitis. [facility] EXAMINATION: CT ABDOMEN PELVIS WITH IV CONTRAST, 05/26/2024, 3:13 PM EST. HISTORY: Abdominal pain, acute, nonlocalized. COMPARISON: None. TECHNIQUE: CT scan of the abdomen and pelvis was performed with IV contrast. CT dose reduction technique was used, including Automated Exposure Control. FINDINGS: There are areas of tree-in-bud opacities within the right lower lobe compatible with infectious or inflammatory etiology. The abdominal aorta is of normal caliber. Spleen, pancreas, adrenal glands are satisfactory. Gallbladder is surgically absent. No significant liver lesions. Kidneys enhance symmetrically bilaterally. There is no hydronephrosis and no evidence of obstructive uropathy. Mild thickening of the urinary bladder should be correlated with urinalysis to exclude cystitis. There is nonspecific free pelvic fluid which may be reactive. The unopacified loops of small bowel and colon appear satisfactory. There is no free air or obstruction. Louise Roberto, DO - 05/26/2024 EXAMINATION: CT ABDOMEN PELVIS WITH IV CONTRAST, 05/26/2024, 3:13 PM EST. HISTORY: Abdominal pain, acute, nonlocalized. COMPARISON: None. TECHNIQUE: CT scan of the abdomen and pelvis was performed with IV contrast. CT dose reduction technique was used, including Automated Exposure Control. FINDINGS: There are areas of tree-in-bud opacities within the right lower lobe compatible with infectious or inflammatory etiology. The abdominal aorta is of normal caliber. Spleen, pancreas, adrenal glands are satisfactory. Gallbladder is surgically absent. No significant liver lesions. Kidneys enhance symmetrically bilaterally. There is no hydronephrosis and no evidence of obstructive uropathy. Mild thickening of the urinary bladder should be correlated with urinalysis to exclude cystitis. There is nonspecific free pelvic fluid which may be reactive. The unopacified loops of small bowel and colon appear satisfactory. There is no free air or obstruction. IMPRESSION: Tree-in-bud opacities within the right lower lobe compatible with infectious or inflammatory etiology. Free pelvic fluid likely reactive. Thickening of the urinary bladder should be correlated with urinalysis to exclude cystitis. [facility] Radiology Study observation (narrative) [facility] CT Abdomen and Pelvis W cont rast IVOrdered By: Louise Robins on 05-26-2024 [facility] Work Phone: CTA CHEST W/IV CONTRAST PE S CHINADYon 05-26-2024 CTA CHEST W/IV CONTRAST PE STUDY EXAMINATION: CTA CHEST W/IV CONTRAST PE STUDY HISTORY: Pulmonary embolism (PE) suspected, high prob COMPARISON: None. TECHNIQUE: CTA chest obtained with IV contrast. MIP (maximum intensity projection) images or 3D post processing was performed. Dose reduction techniques were achieved by using automated exposure control and/or adjustment of mA and/or kV according to patient size and/or use of iterative reconstruction technique. FINDINGS: There is adequate opacification of the pulmonary arteries. No filling defects. No axillary lymphadenopathy. Mildly prominent right hilar lymph node measures 19 x 15 mm. Largest left hilar lymph node measures 12 x 12 mm. Subcarinal lymph node measures 20 x 10 mm. Normal heart size. Normal aortic caliber. There is diffuse bronchial wall thickening with lower lobe predominance. Groundglass infiltrates and tree-in-bud nodularity is present in the right lower lobe as well as in the left lung base to a less severe degree. There is no pleural fluid. IMPRESSION: 1. No evidence of pulmonary embolism. 2. Extensive bronchial wall thickening with lower lobe predominant tree-in-bud nodularity right greater than left compatible with bronchitis/bronchioli tis and likely developing right lower lobe pneumonia. There is no effusion or mucus plug. 3. Mediastinal lymphadenopathy is likely reactive in the setting of active airway inflammation. Pt states he "can't breath, very wheezy and coughing". Pt states has had symptoms for several weeks and states is getting worse. Pt admits to being seen by a provider last week that had taken him off of his asthma medications last week and has been getting much worse since that time. 75ml Omni 350m given JS Normal [employer] CTA Chest vessels W contrast Lito 05-26-2024 1. No evidence of pulmonary embolism. 2. Extensive bronchial wall thickening with lower lobe predominant tree-in-bud nodularity right greater than left compatible with bronchitis/bronchioli tis and likely developing right lower lobe pneumonia. There is no effusion or mucus plug. 3. Mediastinal lymphadenopathy is likely reactive in the setting of active airway inflammation. [facility] EXAMINATION: CTA CHEST W/IV CONTRAST PE STUDY HISTORY: Pulmonary embolism (PE) suspected, high prob COMPARISON: None. TECHNIQUE: CTA chest obtained with IV contrast. MIP (maximum intensity projection) images or 3D post processing was performed. Dose reduction techniques were achieved by using automated exposure control and/or adjustment of mA and/or kV according to patient size and/or use of iterative reconstruction technique. FINDINGS: There is adequate opacification of the pulmonary arteries. No filling defects. No axillary lymphadenopathy. Mildly prominent right hilar lymph node measures 19 x 15 mm. Largest left hilar lymph node measures 12 x 12 mm. Subcarinal lymph node measures 20 x 10 mm. Normal heart size. Normal aortic caliber. There is diffuse bronchial wall thickening with lower lobe predominance. Groundglass infiltrates and tree-in-bud nodularity is present in the right lower lobe as well as in the left lung base to a less severe degree. There is no pleural fluid. Scotty Shoemaker MD - 05/26/2024 EXAMINATION: CTA CHEST W/IV CONTRAST PE STUDY HISTORY: Pulmonary embolism (PE) suspected, high prob COMPARISON: None. TECHNIQUE: CTA chest obtained with IV contrast. MIP (maximum intensity projection) images or 3D post processing was performed. Dose reduction techniques were achieved by using automated exposure control and/or adjustment of mA and/or kV according to patient size and/or use of iterative reconstruction technique. FINDINGS: There is adequate opacification of the pulmonary arteries. No filling defects. No axillary lymphadenopathy. Mildly prominent right hilar lymph node measures 19 x 15 mm. Largest left hilar lymph node measures 12 x 12 mm. Subcarinal lymph node measures 20 x 10 mm. Normal heart size. Normal aortic caliber. There is diffuse bronchial wall thickening with lower lobe predominance. Groundglass infiltrates and tree-in-bud nodularity is present in the right lower lobe as well as in the left lung base to a less severe degree. There is no pleural fluid. IMPRESSION: 1. No evidence of pulmonary embolism. 2. Extensive bronchial wall thickening with lower lobe predominant tree-in-bud nodularity right greater than left compatible with bronchitis/bronchioli tis and likely developing right lower lobe pneumonia. There is no effusion or mucus plug. 3. Mediastinal lymphadenopathy is likely reactive in the setting of active airway inflammation. [facility] Radiology Study observation (narrative) [facility] CTA Chest vessels W contrast IVOrdered By: Scotty Doe on 05-26-2024 [facility] Work Phone: Comprehensive metabolic 2000 panelon 05-26-2024 Albumin (Syn fld) [Mass/Vol] 4.9 g/dL 3.5 - 5.0 g/dL [facility] Aldosterone (U) [Mass/Vol] 78 U/L 24 - 126 U/L [facility] ALT [Catalytic activity/Vol] 20 U/L 4 - 50 U/L [facility] Anion gap [Moles/Vol] 8 mmol/L 8 - 12 mmol/L [facility] AST [Catalytic activity/Vol] 35 U/L 3 - 55 U/L [facility] Bilirubin [Mass/Vol] 2 mg/dL High 0.2 - 1.6 mg/dL [facility] Calcium [Mass/Vol] 9.9 mg/dL 8.4 - 10. 4 mg/dL [facility] Calcium hydrogen phosphate dihydrate crystals LM Ql (Urine sed) 13 mg/dL 8 - 26 mg/dL [facility] Chloride [Moles/Vol] 102 mmol/L 96 - 109 mmol/L [facility] CO2 (BldMV) [Moles/Vol] 26 mmol/L 22 - 30 mmol /L [facility] Creatinine [Mass/Vol] 0.84 mg/dL 0.66 - 1.25 mg/dL [facility] GFR/1.73 sq M.predicted among non-blacks MDRD (S/P/Bld) [Vol rate/Area] 118.1 mL/min/{1.73_m2} - PINF [facility] Comment on above: eGFR calculation bas ed on the Chronic Kidney Disease Epidemiology Collaboration (CKD-EPI) equation refit without adjustment for race. Categories in Chronic Kidney Disease (CKD) Category: GFR(mL/min/1.73m^2) Interpretation: G1* 90 or greater Normal or high G2* 60-89 Mild decrease G3a 45-59 Mild to moderate decrease G3b 30-44 Moderate to severe decrease G4 15-29 Severe decrease G5 14 or less Kidney failure *G1&G2: In the absence of evidence of kidney damage, neither GFR category G1 nor G2 fulfill the criteria for CKD Kidney Int Suppl.2013;3:1-150 Glucose [Mass/Vol] 106 mg/dL High 65 - 100 mg/dL [facility] Interpretation and review of laboratory results Abnormal [employer] [facility] Potassium [Moles/Vol] 4.6 mmol/L 3.6 - 5.1 mmol/L [employer] [employer] Protein [Mass/Vol] 8 g/dL 6.3 - 8.2 g/dL [employer] [facility] Sodium [Moles/Vol] 136 mmol/L 135 - 147 mmol/L [facility] EKG 12 leadon 05-26-2024 [facility] Emergency Dept Test Date: 2024-05-26 Pat Name: CHEL DOCKERY Department: Room: Gender: M Electrophysiology Nurse Practitioner: Ts : 1990 Requested By: MICHELLE HERRERA Order Number: [id number] Kennedy MD: Michelle Herrera Study Reason: Measurements Intervals [place] Rate: 85 P: 63 AR: 124 QRS: 96 QRSD: 81 T: 62 QT: 312 QTc: 354 Interpretive Statements SINUS RHYTHM BORDERLINE RIGHT AXIS DEVIATION [QRS AXIS > 90] Electronically Signed On 05-26-2024 15:56:12 EST by Michelle AU [facility] HIGH SENSITIVITY TROPONIN-Io n 05-26-2024 HS TROPONIN BASE <3.5 Normal <=34.9 [facility] Comment on above: Result Comment: Trop onin results should always be used in conjunction with clinical signs and symptoms in accordance with the fourth universal definition of PA requiring myocardial injury represented by a rise and/or fall of cTn values with at least one value above the 99th percentile URL and at least one of the following: symptoms of myocardial ischaemia, new ischaemic ECG changes, development of pathological Q waves, imaging evidence of new loss of viable myocardium or new regional wall motion abnormality in a pattern consistent with an ischaemic aetiology, identification of a coronary thrombus by angiography or autopsy. Performed By: #### L [id number] #### [facility] [address] HIGH SENSITVITY TROPONIN-I 1 HRon 05-26-2024 HS TROPONIN 1HR <3.5 Normal <=34.9 [facility] Comment on above: Performed By: #### 4 [id number], [id number], [id number], [id number] #### [address] [address] HS TROPONIN CALCULATED DELTA 1HR <0.0 Normal [facility] Comment on above: Performed By: #### 4 [id number], [id number], [id number], [id number] #### [address] [address] [place] [address] [facility] HS TROPONIN INTERPRETATION ACS Ruled Out Normal [facility] Comment on above: Result Comment: (Cli nical Correlation is always advised. If patient is symptomatic consider additional testing.) Performed By: #### 4 [id number], [id number], [id number], [id number] #### [address] [address] [place] [address] [place] High Sensitivity Troponin-I (1HOUR)on 05-26-2024 High Sensitivity Calculated Delta ng/L ng/L [facility] HS Troponin 1hr ng/L NINF - 34.9 ng/L [facility] HS Troponin Interpretation ACS Ruled Out (Clinical Correlation is always advised. If patient is symptomatic consider additional testing.) [facility] High Sensitivity Troponin-I Series (X2) 1hron 05-26-2024 HS Troponin Base ng/L NINF - 34.9 ng/L [facility] Comment on above: Troponin results should always be used in conjunction with clinical signs and symptoms in accordance with the fourth universal definition of PA requiring myocardial injury represented by a rise and/or fall of cTn values with at least one value above the 99th percentile URL and at least one of the following: symptoms of myocardial ischaemia, new ischaemic ECG changes, development of pathological Q waves, imaging evidence of new loss of viable myocardium or new regional wall motion abnormality in a pattern consistent with an ischaemic aetiology, identification of a coronary thrombus by angiography or autopsy. Interpretation and review of laboratory results Normal [facility] MAGNESIUMon 05-26-2024 Magnesium [Mass/Vol] 1.6 mg/dL Normal 1.6-2.3 [facility] Comment on above: Performed By: #### 4 [id number], [id number], [id number], [id number] #### [place] [id number] Magnesiumon 05-26-2024 Magnesium [Mass/Vol] 1.6 mg/dL 1.6 - 2.3 mg/dL [facility] Magnesium [Mass/Vol]on 05-26 Interpretation and review of laboratory results Normal [facility] No Panel Informationon 05-26 Extra Tube Hold for add-ons. [facility] SARS-COV-2, Flu A, FLU B, RS V (PCR) Panelon 05-26-2024 FLUAV RNA LIZETH+probe Ql (Nph) Negative Negative [facility] FLUBV RNA LIZETH+probe Ql (Nph) Negative Negative [facility] Interpretation and review of laboratory results Abnormal [facility] RSV Ag Ql (Unsp spec) Positive Abnormal Negative Gen [facility] SARS-CoV-2 (COVID-19) RNA LIZETH+probe Ql (Resp) Negative Negative [facility] Comment on above: Negative results do not preclude SARS-CoV-2 infection and should not be used as the sole basis for treatment or other patient management decisions. Negative results must be combined with clinical observations, patient history, and epidemiological information. Results are for the simultaneous detection and differentiation of SARS-CoV-2, influenza A virus, influenza B virus and RSV RNA which are generally detectable in upper respiratory specimens during the acute phase of infection. [facility] SARS-COV-2, FLU A, FL U B, RSV (PCR) PANELon 05-26-2024 SARS-CoV-2 (COVID-19) RNA LIZETH+probe Ql (Unsp spec) SARS-COV-2, PCR Negative Negative Negative results do not preclude SARS-CoV-2 infection and should not be used as the sole basis for treatment or other patient management decisions. Negative results must be combined with clinical observations, patient history, and epidemiological information. Results are for the simultaneous detection and differentiation of SARS-CoV-2, influenza A virus, influenza B virus and RSV RNA which are generally detectable in upper respiratory specimens during the acute phase of infection. FLU A, PCR Negative Negative FLU B, PCR Negative Negative RSV, PCR Positive Negative Abnormal Negative [employer] [facility] Comment on above: Performed By: #### L [id number] #### [place] [address] FULL SET PFT WITH MANDATORY BRONCHODILATORon 05-18-2024 [facility] [employer] [facility] Test Date: 2024-05-18 Pat Name: CHEL DOCKERY Department: Room: Gender: Electrophysiology Nurse Practitioner: HERMELINDO Singleton : 1990 Requested By: AGAPITO LAGUNAS Order Number: [id number] Kennedy MD: Daniel Amaya Study Reason: Interpretive Statements An expiratory spirometry study along with a flow volume loop was performed at baseline and after the administration of an inhaled bronchodilating agent. Lung volumes and airway resistance were measured by the body plethysmography technique. A diffusing capacity for carbon monoxide was measured. The study appears to be of good technical quality. The patient's effort and cooperation for the study were described as good. INTERPRETATION: 1. FVC, FEV1, and FEV1/FVC are borderline normal. There was no significant change post bronchodilators. 2. TLC is normal. RV is increased. RV/TLC is increased. 3. The diffusion capacity is normal. 4. Flow-volume loop is unremarkable. Impression: Borderline normal spirometry without significant change post bronchodilators. Air trapping. Normal diffusion capacity. Electronically Signed On 05-18-2024 16:53:03 EST by Daniel AU FULL SET PFT WITH MANDATORY BRONCHODILATOROrdered By: Delmar Reed on 05-18-2024 [facility] CBC AND DIFFERENTIALon 05-15 ABSOLUTE BASOPHIL 0.1 x10*3/uL Normal 0.0-0.1 [facility] Comment on above: Performed By: #### 4 [id number], [id number], [id number], [id number] #### [address] ABSOLUTE EOSINOPHIL 0.4 x10*3/uL High 0.1-0.3 [facility] Comment on above: Performed By: #### 4 [id number], [id number], [id number], [id number] #### [address] ABSOLUTE IMMATURE GRANULOCYTES 0.0 x10*3/uL Normal 0.0-0.1 [facility] Comment on above: Performed By: #### 4 [id number], [id number], [id number], [id number] #### [place] [address] [place] ABSOLUTE LYMPH 1.2 x10*3/uL Normal 1.2-3.3 [facility] Comment on above: Performed By: #### 4 [id number], [id number], [id number], [id number] #### [address] ABSOLUTE MONO 0.4 x10*3/uL Normal 0.2-0.6 [facility] Comment on above: Performed By: #### 4 [id number], [id number], 92836206, [id number] #### [place] [address] [place] ABSOLUTE NEUTROPHIL 3.0 x10*3/uL Normal 2.4-6.6 [facility] Comment on above: Performed By: #### 4 [id number], 13596522, 23813088, 73341437 #### [place] [address] [place] Basophils/100 WBC (Bld) 1.0 % Normal [facility] Comment on above: Performed By: #### 4 0066943, 04499655, 68721210, [id number] #### [address] Eosinophils/100 WBC (Bld) 7.4 % Normal [facility] Comment on above: Performed By: #### 4 3039560, 41449614, 62770855, 89045641 #### [address] Erythrocyte distribution width (RBC) [Ratio] 12.1 % Normal 11.5-14.5 [facility] Comment on above: Performed By: #### 4 [id number], 54189302, 79836281, 26321474 #### [address] Hematocrit (Bld) [Volume fraction] 42.2 % Normal 37.7-51.1 [facility] Comment on above: Performed By: #### 4 6392034, 12603754, 40975940, [id number] #### [address] Hemoglobin (Bld) [Mass/Vol] 14.7 g/dL Normal 12.8-17.7 [facility] Comment on above: Performed By: #### 4 5836719, 47850715, 86329232, 47998569 #### [address] Immature granulocytes/100 WBC (Bld) 0.2 % Normal [facility] Comment on above: Performed By: #### 4 3604081, 95723574, 34124802, 14655485 #### [address] Lymphocytes/100 WBC (Bld) 24.1 % Normal [facility] Comment on above: Performed By: #### 4 4191924, 92572355, 71743374, 90007507 #### [address] MCH (RBC) [Entitic mass] 31.2 pg Normal 27.0-34.2 [facility] Comment on above: Performed By: #### 4 6484212, 58233064, 18626996, 73505798 #### [address] MCHC (RBC) [Mass/Vol] 34.8 g/dL Normal 31.4-36.2 [facility] Comment on above: Performed By: #### 4 0931799, 65981952, 96267322, 13180517 #### [address] MCV (RBC) [Entitic vol] 89.6 fL Normal 80.6-99 [facility] Comment on above: Performed By: #### 4 1908614, 67277379, 85218421, 65736331 #### [address] Monocytes/100 WBC (Bld) 7.4 % Normal [facility] Comment on above: Performed By: #### 4 0434377, 37526374, 43030888, 06007499 #### [address] Neutrophils/100 WBC (Bld) 59.9 % Normal [facility] Comment on above: Performed By: #### 4 1902430, 39904232, 14673440, 91952143 #### [address] NUCLEATED RED BLOOD CELLS AUTO 0.0 % Normal 0.0-1.0 [facility] Comment on above: Performed By: #### 4 7761664, 85264732, 09958759, 37331037 #### [address] PLATELET COUNT 284 x10*3/uL Normal 150-400 [facility] Comment on above: Performed By: #### 4 4820828, 27876807, 00777771, 92889000 #### [address] [address] RED BLOOD CELL COUNT 4.71 x10*6/uL Normal 3.70-5.70 [facility] Comment on above: Performed By: #### 4 3714946, 42687499, 85109368, 19235949 #### [address] WHITE BLOOD CELLS 5.0 x10*3/uL Normal 4.3-10.3 [facility] Comment on above: Performed By: #### 4 1829442, 59993683, 00027399, 80308274 #### [address] CELIAC REFLEX PANELon 2024 IgA [Mass/Vol] 247 mg/dL Normal 90-386 [facility] Comment on above: Order Comment: Perfo rmed at: 01 - [facility] [address] [id number] Director: Lane Pantoja PhD, Phone: [phone] Performed By: #### 4 [id number], [id number], [id number], [id number] #### [address] TTG IGA <2 Normal 0-3 [facility] Comment on above: Order Comment: Perfo rmed at: 01 - [facility] [address] [id number] Director: Lane Pantoja PhD, Phone: [phone] Result Comment: Nega tive 0 - 3 Weak Positive 4 - 10 Positive >10 Tissue Transglutaminase (tTG) has been identified as the endomysial antigen. Studies have demonstr- ated that endomysial IgA antibodies have over 99% specificity for gluten sensitive enteropathy. Performed By: #### 4 6493985, 71883396, 43312845, [id number] #### [address] COMPREHENSIVE METABOLIC PANE [place] 05-15-2024 Albumin [Mass/Vol] 4.6 g/dL Normal 3.5-5.0 [facility] Comment on above: Performed By: #### 4 [id number], 47269741, 87256533, [id number] #### [address] [address] ALK PHOS 76 U/L Normal 24-126 [facility] Comment on above: Performed By: #### 4 9242295, 20124374, 32114605, 31202325 #### [address] [address] ALT [Catalytic activity/Vol] 21 U/L Normal 4-50 [facility] Comment on above: Performed By: #### 4 6194472, 28507661, 02942800, 72832839 #### [address] [address] AST [Catalytic activity/Vol] 21 U/L Normal 3-55 [facility] Comment on above: Performed By: #### 4 5778248, 98245792, 45371782, 55406807 #### [address] [address] Bilirubin [Mass/Vol] 1.1 mg/dL Normal 0.2-1.6 [facility] Comment on above: Performed By: #### 4 0750225, 33476867, 69884578, 75937813 #### [address] [address] Calcium [Mass/Vol] 9.9 mg/dL Normal 8.4-10.4 [facility] Comment on above: Performed By: #### 4 3756380, 89527872, 41567444, 39980204 #### [address] [address] Chloride [Moles/Vol] 104 mmol/L Normal 96-109 [facility] Comment on above: Performed By: #### 4 2301827, 27597110, 62184850, 89458577 #### [address] [address] CO2 [Moles/Vol] 29 mmol/L Normal 22-30 [facility] Comment on above: Performed By: #### 4 3071960, 17873186, 84548422, 91097964 #### [address] [address] Creatinine [Mass/Vol] 0.97 mg/dL Normal 0.66-1.25 [facility] Comment on above: Performed By: #### 4 9031926, 83929584, 38719022, 15671482 #### [place] [address] [place] GLOMERULAR FILTRATION RATE ML/MIN/1.73 SQ M.PREDICTED 105.7 mL/min/1.73m*2 Normal >=60.0 [facility] Comment on above: Result Comment: eGFR calculation based on the Chronic Kidney Disease Epidemiology Collaboration (CKD-EPI) equation refit without adjustment for race. Categories in Chronic Kidney Disease (CKD) Category: GFR(mL/min/1.73m^2) Interpretation: G1* 90 or greater Normal or high G2* 60-89 Mild decrease G3a 45-59 Mild to moderate decrease G3b 30-44 Moderate to severe decrease G4 15-29 Severe decrease G5 14 or less Kidney failure *G1&G2: In the absence of evidence of kidney damage, neither GFR category G1 nor G2 fulfill the criteria for CKD Kidney Int Suppl.2013;3:1-150 Performed By: #### 4 [id number], [id number], [id number], [id number] #### [place] [address] [place] [id number] Glucose [Mass/Vol] 93 mg/dL Normal 65-100 [facility] Comment on above: Performed By: #### 4 [id number], [id number], [id number], [id number] #### [place] [address] [place] [id number] [facility] Potassium [Moles/Vol] 4.7 mmol/L Normal 3.6-5.1 [facility] Comment on above: Performed By: #### 4 [id number], [id number], [id number], [id number] #### [place] [address] [place] [address] [facility] Protein [Mass/Vol] 7.2 g/dL Normal 6.3-8.2 [facility] Comment on above: Performed By: #### 4 [id number], [id number], [id number], [id number] #### [address] [place] [address] [place] Sodium [Moles/Vol] 140 mmol/L Normal 135-147 [facility] Comment on above: Performed By: #### 4 [id number], [id number], [id number], [id number] #### [address] [place] [address] [place] Urea nitrogen [Mass/Vol] 11 mg/dL Normal 8-26 [facility] Comment on above: Performed By: #### 4 [id number], [id number], [id number], [id number] #### [address] [place] [address] [place] HIV ANTIBODY - [facility] HIV-1 AND HIV-2 ANTIBODIES Non-Reactive Normal Nonreactive [facility] Comment on above: Result Comment: No d etectable HIV-1p24 Antigen or HIV-1/HIV2 antibodies. If recent HIV exposure is suspected or reported, conduct HIV-1 ISAAC or request a new specimen and repeat the algorithm according to CDC guidance, available at: http://www.cdc.gov/hiv/guidelines Guidelines and Recommendations HIV/AIDS CDC These guidelines are intended for clinicians, public health professionals, program managers in clinical and non-clinical settings, persons at risk for HIV infection, and the general public. www.cdc.gov Performed By: #### 4 [id number], [id number], [id number], [id number] #### [address] LIPID PANELon 05-15-2024 Cholesterol [Mass/Vol] 161 mg/dL Normal <=200 [facility] Comment on above: Performed By: #### 4 [id number], [id number], [id number], [id number] #### [address] Cholesterol in HDL [Mass/Vol] 48.0 mg/dL Normal 40.0-59.9 [facility] Comment on above: Performed By: #### 4 [id number], [id number], [id number], [id number] #### [address] LDL CHOLESTEROL CALCULATED 94 mg/dL Normal <=100 [facility] Comment on above: Result Comment: LDL REFERENCE RANGE: Optimal <100 mg/dl Near Optimal 100-129 mg/dL Borderline High 130-159 mg/dL High 160-189 mg/dL Very High >=190 mg/dL Performed By: #### 4 [id number], [id number], [id number], [id number] #### [address] Triglyceride [Mass/Vol] 97 mg/dL Normal <=150 [facility] Comment on above: Performed By: #### 4 [id number], [id number], [id number], [id number] #### [address] [address] VLDL CHOLESTEROL JAZMIN 19 mg/dL Normal <=41 [facility] Comment on above: Performed By: #### 4 [id number], [id number], [id number], [id number] #### [address] [place] [id number] [facility] TSHon 05-15-2024 TSH 1.260 uIU/mL Normal 0.465-4.680 [facility] Comment on above: Performed By: #### 4 [id number], [id number], [id number], [id number] #### [address] Urgent Care Visit Reporton 0 07-25-2020 Urgent Care Visit Report [facility] [address] [facility] [place] [id number] OFFICE VISIT Date of Service: 07/25/20 MR#: [id number] Acct: [id number] Name: CHEL DOCKERY Rep #: [id number] : 1990 Provider: BEULAH lyons Age/Sex: 29/M Location: [facility] Status: Signed Intake Vital Signs 07/25/20 BP 100/62 07/25/20 Blood Pressure Location Lt brachial 07/25/20 Position Sitting 07/25/20 Respiration 14 07/25/20 Pulse 62 07/25/20 Pulse Source Monitor 07/25/20 Temp 98.4 F 07/25/20 Temp Source Temporal 07/25/20 Pulse Oximetry (%) 98 07/25/20 Oxygen Delivery Method room air Intake Visit Reasons: Vomiting Chief Complaint: Nausea, vomiting, diarrhea Allergies azithromycin Allergy (Severe, Verified 07/25/20 13:45) Anaphylaxis diphenhydramine HCl [From Benadryl] Allergy (Severe, Verified 07/25/20 13:45) Rash Penicillins Allergy (Severe, Verified 07/25/20 13:45) Hives ibuprofen Adverse Reaction (Severe, Verified 07/25/20 13:45) Increased Asthma symptoms Medications albuterol sulfate 90 mcg/actuation aerosol inhaler 2 puff INHALATION Q6H PRN 04/15/18 [History Confirmed 07/25/20] Albuterol Inhaler [Ventolin Hfa] 1 - 2 puff INHALATION Q4H PRN PRN #1 inhaler 05/17/20 [Rx Confirmed 07/25/20] ondansetron HCl 4 mg tablet 4 mg PO Q8H PRN #7 tablet 07/25/20 [Rx Confirmed 07/25/20] PFSH Medical History Sinus bradycardia (Chronic) WPW (Atoqs-Peuffylvx-Mfck e syndrome) (Chronic) Asthma (Acute) Surgical History History of appendectomy (Resolved) History of cardiac radiofrequency ablation (Resolved 1997) History of cholecystectomy (Resolved) Family History Other Asthma Diabetes Heart disease Hypertension Social History (Updated 07/25/20 @ 15:24 by BEULAH Lopez) Smoking Status: Never smoker Smokeless tobacco user: chewing tobacco alcohol intake: never HPI HPI Chief Complaint: Nausea, vomiting, diarrhea Details: CHEL DOCKERY, is a 29 M who presents to the office today for evaluation of the above. Patient states symptoms started around 2 AM. He states he has had a couple episodes of nausea and vomiting as well as 2-3 episodes of diarrhea loose and watery. No hematemesis, hematochezia, hematuria or hemoptysis. No fever or chills, cough or congestion or other conversational complaint. No chest pain or shortness of breath. Denies any abdominal pain. Denies any dysuria, hematuria or urinary frequency. States he feels a little bit tired. No change in his sense of smell or taste or other complaint or concern for COVID-19. He states his sister and niece had similar symptoms a few days ago when they have since resolved. He lives in the same household in the basement. Denies other associated symptoms or modifying factors. Since his last emesis he states she has been able to tolerate p.o. fluids without further vomiting. Denies other complaints. Exam Const General: healthy appearing, comfortable, no acute distress, well developed Nutritional Appearance: well nourished Orientation: alert, awake, oriented x3 HENMT Head: normal to inspection, normocephalic, atraumatic Ears: hearing grossly normal bilaterally Nose: external nose normal Face and sinus: normal facial exam Mouth: oral mucosae normal, lip normal, tongue normal, moist mucous membranes Teeth and gingiva: dentition normal Throat: posterior oropharynx normal, tonsils normal, uvula midline Eyes General: appearance normal, both eyes and all related structures Neck Neck: normal visual inspection, full ROM, no lymphadenopathy, no meningeal signs, trachea midline, supple Chest Chest palpation inspection: normal inspection of the chest Resp Effort Inspection: normal respiratory effort, able to speak in complete sentences, symmetric chest movement Auscultation: Bilateral: Clear to Auscultation Cardio Rate: regular rate Rhythm: regular rhythm Heart Sounds: S1 normal, S2 normal Pulses: normal peripheral pulses GI Inspection: normal to inspection Auscultation: normal bowel sounds, normoactive bowel sounds Palpation: soft, no hepatosplenomegaly, no guarding, no hernias, no masses, not rigid, nontender Musc Musculoskeletal: No joint tenderness, joint redness, joint warmth or decreased ROM Cervical Spine: normal cervical lordosis Thoracic/Lumbar Spine: thoracic and lumbar spine normal to inspection Skin General: no rashes or lesions noted Neuro General: moves all extremities, no meningeal signs, no focal motor deficits, CN's II-XI intact bilaterally, normal sensation to monofilament Extrem General: normal to inspection, full ROM, normal capillary refill, no clubbing, cyanosis or ed (more content not included)... Normal [facility] Urgent Care Visit Reporton 0 06-27-2020 Urgent Care Visit Report [facility] [address] [place] [address] OFFICE VISIT Date of Service: 06/27/20 MR#: [id number] Acct: [id number] Name: CHEL DOCKERY Rep #: [id number] : 1990 Provider: BEULAH Vance Age/Sex: 29/M Location: [facility] Status: Signed Intake Vital Signs 06/27/20 BP 110/62 06/27/20 Blood Pressure Location Lt brachial 06/27/20 Position Sitting 06/27/20 Respiration 14 06/27/20 Pulse 75 06/27/20 Pulse Source Monitor 06/27/20 Temp 98.0 F 06/27/20 Temp Source Temporal 06/27/20 Pulse Oximetry (%) 98 06/27/20 Oxygen Delivery Method room air Intake Visit Reasons: RT INDEX FINGER/PPG Allergies azithromycin Allergy (Severe, Verified 06/27/20 14:07) Anaphylaxis diphenhydramine HCl [From Benadryl] Allergy (Severe, Verified 06/27/20 14:07) Rash Penicillins Allergy (Severe, Verified 06/27/20 14:07) Hives ibuprofen Adverse Reaction (Severe, Verified 06/27/20 14:07) Increased Asthma symptoms Medications albuterol sulfate 90 mcg/actuation aerosol inhaler 2 puff INHALATION Q6H PRN 04/15/18 [History Confirmed 06/27/20] Albuterol Inhaler [Ventolin Hfa] 1 - 2 puff INHALATION Q4H PRN PRN #1 inhaler 05/17/20 [Rx Confirmed 06/27/20] [facility] Medical History Sinus bradycardia (Chronic) WPW (Qtgom-Khadzsujg-Setq e syndrome) (Chronic) Asthma (Acute) Surgical History History of appendectomy (Resolved) History of cardiac radiofrequency ablation (Resolved 1997) History of cholecystectomy (Resolved) Family History Other Asthma Diabetes Heart disease Hypertension Social History (Updated 06/27/20 @ 15:21 by Barron RIOJAS, PA) Smoking Status: Never smoker Smokeless tobacco user: chewing tobacco alcohol intake: never HPI HPI Details: CHEL DOCKERY, is a 29 M who presents to the office today for follow-up of a work-related injury. Patient today states that his index finger pain has nearly completely resolved other than when he is trying to force complete flexion. He states that the flexion that he does have is almost completely healed and that he is doing the at home exercises as advised. He denies any numbness, tingling or loss range of motion. Patient states that he would be able to do his job without issue particularly since he will be going on vacation in 2 days. No other associated symptoms or alleviating/aggravati ng factors. ROS Const Constitutional: Positive for other (6 system ROS completed with pertinent findings in the HPI otherwise normal.) Exam Const General: cooperative, healthy appearing [facility] Head: normocephalic, atraumatic Ears: hearing grossly normal bilaterally Nose: external nose normal Eyes General: appearance normal, both eyes and all related structures Resp Effort Inspection: normal respiratory effort Auscultation: Bilateral: Clear to Auscultation Cardio Palpation: normal PMI Rate: regular rate Rhythm: regular rhythm Skin General: no rashes or lesions noted Neuro General: alert, CN's II-XI intact bilaterally Extrem General: normal capillary refill Other: Appropriate sensation to light touch distally. Range of motion to the right index finger limited secondary to pain passively. Psych Appearance: grossly normal Mental Status: mental status grossly normal Assessment Plan Problems 1. Contusion of right index finger without damage to nail, initial encounter S60.021A Plan [employer] filled out releasing patient back to work today without restrictions. Patient advised to continue with his at home range of motion and stretching exercises. Advised to continue symptomatic management techniques as previously advised. Patient verbalized understanding and agreement with all the above. Coding Level of Care Code Off vis,est,level 3 Diagnoses Contusion of right index finger without damage to nail, initial encounter S60.021A 06/27/20 1522 Date Barron Gleasonigndavian Signature: Date (if applicable) CC: Normal [facility] Urgent Care Visit Reporton 0 06-13-2020 Urgent Care Visit Report [facility] [address] [place], [place] [id number] OFFICE VISIT Date of Service: 06/13/20 MR#: [id number] Acct: [id number] Name: CHEL DOCKERY Rep #: [id number] : 1990 Provider: BEULAH Vance Age/Sex: 29/M Location: [facility] Status: Signed with Addenda ADDENDUM by BEULAH Vance on 06/20/20 at 1700 Addendum entered and electronically signed by BEULAH Landeros 06/20/20 17:00: Correction, [employer] filled out releasing patient back to work today with restrictions of no lifting/pushing/pulli ng greater than 10 pounds. Patient is to follow-up here for reevaluation for which she has been scheduled. Patient verbalized understanding and agreement with all the above. HPI Details: CHEL DOCKERY, is a 29 M who presents to the office today for 06/20/20 1700 Date Barron Vance cc: * Signed ADDENDUM by BEULAH Vance on 06/20/20 at 1658 Addendum entered and electronically signed by BEULAH Landeros 06/20/20 16:58: Assessment and plan added to note. HPI Details: CHEL DOCKERY, is a 29 M who presents to the office today for Assessment Plan Problems 1. Contusion of right index finger without damage to nail, initial encounter S60.021A Plan - BEULAH Landeros [employer] filled out releasing patient back to work today without restrictions. Patient advised to letter is to follow-up in this office unless he should have an exacerbation of symptoms or new concerns. Patient verbalized understanding and agreement with all the above. 06/20/20 1658 Date Barron Vance cc: * Signed Intake Vital Signs 06/13/20 Height 5 ft 5 in 06/13/20 Weight: 131 lb 4 oz 06/13/20 BP 110/75 06/13/20 Blood Pressure Location Lt brachial 06/13/20 Position Sitting 06/13/20 Respiration 14 06/13/20 Pulse 97 06/13/20 Pulse Source Monitor 06/13/20 Temp 97.2 F L 06/13/20 Temp Source Temporal 06/13/20 Pulse Oximetry (%) 98 06/13/20 Oxygen Delivery Method room air Intake Visit Reasons: RIGHT INDEX FINGER / PPG Allergies azithromycin Allergy (Severe, Verified 06/13/20 13:37) Anaphylaxis diphenhydramine HCl [From Benadryl] Allergy (Severe, Verified 06/13/20 13:37) Rash Penicillins Allergy (Severe, Verified 06/13/20 13:37) Hives ibuprofen Adverse Reaction (Severe, Verified 06/13/20 13:37) Increased Asthma symptoms Medications albuterol sulfate 90 mcg/actuation aerosol inhaler 2 puff INHALATION Q6H PRN 04/15/18 [History Confirmed 06/13/20] Albuterol Inhaler [Ventolin Hfa] 1 - 2 puff INHALATION Q4H PRN PRN #1 inhaler 05/17/20 [Rx Confirmed 06/13/20] PFSH Medical History Sinus bradycardia (Chronic) WPW (Avwfw-Ihruuwgbm-Dgkr e syndrome) (Chronic) Asthma (Acute) Surgical History History of appendectomy (Resolved) History of cardiac radiofrequency ablation (Resolved 1997) History of cholecystectomy (Resolved) Family History Other Asthma Diabetes Heart disease Hypertension Social History (Updated 06/13/20 @ 14:17 by Barron RIOJAS, BEULAH) Smoking Status: Never smoker Smokeless tobacco user: chewing tobacco alcohol intake: never HPI HPI Details: CHEL DOCKERY, is a 29 M who presents to the office today for follow-up of work-related injury. Patient states today that his pain has improved however he continues to have pain with range of motion and has had decreased range of motion due to stiffness. He denies numbness, tingling or loss range of motion to the right index finger. He states taking ibuprofen and Tylenol which do help with the pain which today he rates a 3-4 out of 10. No other associated symptoms or alleviating/aggravati ng factors. ROS Const Constitutional: Positive for other (6 system ROS completed with pertinent findings in the HPI otherwise normal.) Exam Const General: cooperative, healthy appearing [facility] Head: normocephalic, atraumatic Ears: hearing grossly normal bilaterally Nose: external nose normal Eyes General: appearance normal, both eyes and all related structures Resp Effort Inspection: normal respiratory effort Auscultation: Bilateral: Clear to Auscultation Cardio Palpation: normal PMI Rate: regular rate Rhythm: regular rhythm Skin General: no rashes or lesions noted Neuro General: alert, CN's II-XI intact bilaterally Extrem General: normal capillary refill Other: Skin avulsion to the dorsum of the right index finger at the PIP joint with some slight surrounding erythema. No warmth, drainage or extending erythema. Appropriate sensation to light touch distally. Range of m (more content not included)... Normal [facility] Finger(s) Min 2 Viewson 05-13 Finger(s) Min 2 Views [facility] Imaging Services [address] [place] [address] Finger(s) Min 2 Views MR#: [id number] Acct: [id number] Name: CHEL DOCKERY Rep #: [id number] : 1990 M 29 From: Joseph Blair PCP: Care Physician, No Primary Status: REG CLI Study: Finger(s) Min 2 Views Date of Exam: 06/05/20 Exam# [id number] Ordering Dr: Barron Vance STUDY: X-RAY - RIGHT HAND, ATTENTION INDEX FINGER REASON FOR EXAM: Male, 29 years old. right index finger caught in machine at work 2 days ago, pain/abrasion TECHNIQUE: 3 view(s) of the finger were obtained. COMPARISON: None. FINDINGS: Normal metacarpal head. Normal metacarpophalangeal joint. Normal proximal phalanx. Normal middle phalanx. Normal distal phalanx. Normal proximal interphalangeal joint. Normal distal interphalangeal joint. RAD/Finger(s) Min 2 Views IMPRESSION: Normal x-ray examination of the finger. Electronically Signed: Joseph Parker MD at 19:58 EST , Service support , CC: No Primary Care Physician; BEULAH Vance Die Grinder: Signed Normal [facility] Urgent Care Visit Reporton 0 06-05-2020 Urgent Care Visit Report [facility] [address] [place] [address] OFFICE VISIT Date of Service: 06/05/20 MR#: [id number] Acct: [id number] Name: CHEL DOCKERY Rep #: [id number] : 1990 Provider: BEULAH Vance Age/Sex: 29/M Location: [facility] Status: Signed Intake Vital Signs 06/05/20 Height 5 ft 6 in 06/05/20 Weight: 132 lb 06/05/20 BP 124/64 H 06/05/20 Blood Pressure Location Lt brachial 06/05/20 Position Sitting 06/05/20 Respiration 14 06/05/20 Pulse 60 06/05/20 Pulse Source Monitor 06/05/20 Temp 98.4 F 06/05/20 Temp Source Temporal 06/05/20 Pulse Oximetry (%) 99 06/05/20 Oxygen Delivery Method room air Intake Visit Reasons: RT INDEX FINGER/PPG/[employer] [employer] Allergies azithromycin Allergy (Severe, Verified 06/05/20 16:43) Anaphylaxis diphenhydramine HCl [From Benadryl] Allergy (Severe, Verified 06/05/20 16:43) Rash Penicillins Allergy (Severe, Verified 06/05/20 16:43) Hives ibuprofen Adverse Reaction (Severe, Verified 06/05/20 16:43) Increased Asthma symptoms Medications albuterol sulfate 90 mcg/actuation aerosol inhaler 2 puff INHALATION Q6H PRN 04/15/18 [History Confirmed 06/05/20] Albuterol Inhaler [Ventolin Hfa] 1 - 2 puff INHALATION Q4H PRN PRN #1 inhaler 05/17/20 [Rx Confirmed 06/05/20] PFSH Medical History (Updated 06/05/20 @ 16:53 by Barron RIOJAS, BEULAH) Sinus bradycardia (Chronic) WPW (Lgdcw-Ckdjkcsxq-Cjiy e syndrome) (Chronic) Asthma (Acute) Surgical History History of appendectomy (Resolved) History of cardiac radiofrequency ablation (Resolved 1997) History of cholecystectomy (Resolved) Family History (Updated 06/05/20 @ 16:44 by Lucy Aviles) Other Asthma Diabetes Heart disease Hypertension Social History (Updated 06/06/20 @ 07:17 by Barron RIOJAS, BEULAH) Smoking Status: Never smoker Smokeless tobacco user: chewing tobacco alcohol intake: never HPI HPI Details: CHEL DOCKERY, is a 29 M who presents to the office today for initial evaluation of a work- related injury which occurred on 06/03/2020. On that date the patient had his right index finger cot in the machine. Patient states that he did have a small skin avulsion on the back of his right index finger at the knuckle and has quite a bit of pain at this time in the same area particular with range of motion. He has kept the finger in a finger splint and covered with triple antibiotic and a bandage. He denies any previous injuries to this hand. He denies numbness, tingling. Patient does state that he regularly takes prednisone for his asthma and has had multiple fractures in the past to his wrists. No other associated symptoms or alleviating/aggravati ng factors. ROS Const Constitutional: Positive for other (6 system ROS completed with pertinent findings in the HPI otherwise normal.) Exam Const General: cooperative, healthy appearing [facility] Head: normocephalic, atraumatic Ears: hearing grossly normal bilaterally Nose: external nose normal Eyes General: appearance normal, both eyes and all related structures Resp Effort Inspection: normal respiratory effort Auscultation: Bilateral: Clear to Auscultation Cardio Palpation: normal PMI Rate: regular rate Rhythm: regular rhythm Skin General: no rashes or lesions noted Neuro General: alert, CN's II-XI intact bilaterally Extrem General: normal capillary refill Other: Skin avulsion to the dorsum of the right index finger at the PIP joint with some slight surrounding erythema. No warmth, drainage or extending erythema. Appropriate sensation to light touch distally. Psych Appearance: grossly normal Mental Status: mental status grossly normal Assessment Plan Problems 1. Contusion of right index finger without damage to nail, initial encounter S60.021A Status Acute Plan X-ray of the right index finger read and interpreted by myself finding no acute osseous abnormalities, awaiting radiology interpretation at time of patient discharge. [employer] as well as first report of injury forms filled out releasing patient back to work today with restrictions of no use of the right hand for work-related purposes. Patient advised to use ibuprofen or Tylenol as needed for pain as well as ice 2-3 times daily for 20 minutes. Patient advised to continue wearing the splint through the end of the week and then to discontinue use of the splint and start range of motion exercises. Patient advised to follow-up here in 1 week for reevaluation or sooner should his symptoms worsen or he develop new concerns. Patient verbalized understanding and agreement with all the above. Orders Orders: Finger(s) Min 2 Views 06/05/20 S60.021A Coding Level of Care Code Off vis,new,level 4 Diagno (more content not included)... Normal [facility] COVID 19 AG RAPID (DORIAN Loja)on 05-17-2020 SARS-CoV-2 (COVID-19) RNA LIZETH+probe Ql (Unsp spec) COVID AG -RAPID *Negative results from patients with symptom onset beyond five days should be treated as presumptive and confirmed by a molecular assay if clinically necessary. Negative results should not be used as the sole basis for treatment or for patient management. *Positive results do not differentiate between SARS-CoV and SARS-CoV-2. If differentation of the specific SARS virus is desired an additional sample and an additional order is required. * This test has not been FDA cleared or approved; the test has been authorized by FDA under an Emergency Use Authorization (EAU) for use by laboratories certified under CLIA that meet the requirements to perform moderate, high, or waived complexity tests. Normal Reference Range: Negative Testing performed on [employer] analyzer ANN (lateral flow immunofluorescent assay) SARS-CoV-2 (COVID 19) Negative Normal [facility] Comment on above: Performed By: #### M 100.505 #### [facility] [address] [place], [address] Chest 1 View (Portable)on Chest 1 View (Portable) [facility] Imaging Services [address] [place] [address] Chest 1 View (Portable) MR#: [id number] Acct: [id number] Name: CHEL DOCKERY Rossy Rep #: [id number] : 1990 M 29 From: Ventura fabian MD PCP: Care Physician, No Primary Status: REG ER Study: Chest 1 View (Portable) Date of Exam: 05/17/20 Exam# [id number] Ordering Dr: Adams Link MD STUDY: X-RAY CHEST REASON FOR EXAM: Male, 29 years old. chest congestion,cough and no energy since . HX OF ASTHMA TECHNIQUE: Single PA view of the chest. COMPARISON: 02/29/2020. FINDINGS: The lungs are clear and expanded. There is no demonstrated pleural abnormality. Normal size heart. Normal mediastinum and zachary. Normal visualized pulmonary arteries. Normal visualized aortic arch and descending thoracic aorta. Normal visualized thoracic spine. Normal visualized ribs, clavicles, and shoulders. There is no demonstrated abnormality of the visualized soft tissue structures of the upper abdomen. RAD/Chest 1 View (Portable) IMPRESSION: Normal x-ray examination of the chest. Electronically Signed: Ventura Foster MD at 20:57 EST , Service support , CC: No Primary Care Physician; Dr. Adams Link MD Die Grinder: Signed Normal [facility] Emergency Department Summary on 05-17-2020 Emergency Department Summary [facility] Medical Records Department [address] [place] [id number] Emergency Department Summary 05/17/20 MR#: [id number] Acct: [id number] Name: CHEL DOCKERY Rep #: [id number] : 1990 29 From: Adams Link MD PCP: Care Physician, No Primary Status:REG ER History of Present Illness Chief Complaint: Cough Informant: Patient Onset: Weeks - 1.5-2 Context: Gradual Onset Timing: Continuous Quality: Occasionally productive, yellow sputum, no blood Location: Chest Current Severity: Moderate Maximum Severity: Moderate Worsened by: - - Nothing Relieved by: - - Nothing Associated Symptoms: Nasal Congestion, Shortness of Breath, Chest Pain, Productive Cough, - - Fevers/chills. Negative for: Headache, Sinus Pressure, Nausea, Vomiting, Diarrhea Narrative: Patient states he has recently traveled to the [facility] twice. No contact with persons that he knows of with COVID-19, and he has not had it that he knows of. He states he has asthma, he lives in [place] some of the year and he does not have asthma issues when he is there, but when he is here the cold weather seems to trigger his asthma and he has mild issues almost daily. Now it is a little worse, not severe, but he is feeling tightness in his chest and some trouble breathing in context of what feels like a chest cold/bronchitis for the past 1.5-2 weeks. - Past Medical History (1) Asthma Status: Chronic (2) WPW (Eylup-Mmgoqfyae-Zlag e syndrome) Status: Chronic Past Medical History - Allergies and Home Meds Allergies/Adverse Reactions: Allergies azithromycin Allergy (Severe, Verified 05/17/20 19:11) Anaphylaxis diphenhydramine HCl [From Benadryl] Allergy (Severe, Verified 05/17/20 19:11) Rash Penicillins Allergy (Severe, Verified 05/17/20 19:11) Hives ibuprofen Adverse Reaction (Severe, Verified 05/17/20 19:11) Increased Asthma symptoms Primary Care Physician: Care Physician,No Primary [Primary Care Provider] - Surgical History: noncontributory Smoking Status: Never smoker Review of Systems General: Reports: Chills, Fever - Low-grade up to 100.5, Malaise. Denies: Sweats Eyes: Denies: Visual changes - bilaterally, Diplopia ENT: Reports: Rhinorrhea - With congestion, no sinus pain. Denies: Bilateral ear pain, Sore throat Cardiovascular: Reports: Chest pain - Tightness. Denies: Palpitations Respiratory: Reports: Dyspnea, Cough, Sputum Gastrointestinal: Denies: Abdominal pain, Nausea, Vomiting, Diarrhea, Melena, Hematochezia Genitourinary: Denies: Dysuria, Hematuria, Frequency Musculoskeletal: Denies: Myalgias, Back pain, Swelling, Extremity Pain Skin: Denies: Rash, Wounds Neurological: Denies: Headache, Weakness, Numbness Physical Exam Vital Signs/Narrative: Vital Signs Temp Pulse Resp BP Pulse Ox 05/17/20 19:08 98.0 F 72 16 136/74 H 97 Inital Vital Signs reviewed: Yes General: Well nourished, Well developed Head: Normocephalic, Atraumatic Eyes: Perrl, EOMI Nose: Normal Inspection, No Rhinorrhea Mouth/Throat: Normal Inspection, No Posterior Erythema Neck: Supple, Nontender, No Lymphadenopathy, No Meningismus Cardiovascular: Regular rate, Regular rhythm, No murmurs Respiratory: No distress, Chest nontender, Wheezing. Negative for: Rales, Rhonchi Abdomen: Soft, Nontender, Nondistended, Normal bowel sounds Back: Nontender, Normal Inspection Extremities: Nontender, No edema Skin: Normal color, No rash, No Trauma Neurological: Alert, Oriented x3, Cranial nerves II-XII grossly intact, Normal Strength, Normal Sensation, Normal Gait Psychological: Normal affect, Normal Mood Diagnostic/Tx/Re-eval Clinical Impression(s) from Imaging Studies Chest X-Ray 05/17/20 20:23 IMPRESSION: Normal x-ray examination of the chest. Electronically Signed: Ventura Foster MD at 20:57 EST , Service support , - Medical Decision Making Patient feels better after a duo nebulizer treatment. His Covid test is negative and his chest x- ray is normal. No antibiotics indicated, but I think it is reasonable to treat him for an asthma exacerbation and prescribed him a rescue inhaler. He is in agreement and feels better and will be discharged home to follow-up with a PCP. Referred to the next doctor on the unassigned list. ED Disposition - Plan for ED Patient: Disposition: Home or Assisted Living Diagnosis: Acute asthmatic bronchitis Instructions: ED Asthma, Acute (Adult), ED Bronchitis with Wheezing (Adult) Prescriptions: Prednisone [Deltasone] 40 mg PO DAILY #10 tab Prescription Printed Albuterol Inhaler [Ventolin Hfa] 1 - 2 puff INHALATION Q4H PRN PRN #1 inhaler PRN Reason: Wheezing Prescription Printed Referrals: Abdon Castillo MD [STAFF PHYSICIAN] - 1-2 Weeks What to do if you have Problems For any increased pain, shortn (more content not included)... Normal [facility] CHEST 2 VIEWSon 11-03-2018 CHEST 2 VIEWS [place] [address] Patient: CHEL DOCKERY Phone#: : [phone] Age: 28 Gender: M Pt. Type: ER Account: [id number] Location: [facility] Ordering: SAMIRA BORGES Exam Date: 11/03/2018/0:46 Family Phys: NO DOCTOR Charge Code: 555650 Physician: Gray Order #: [id number] DLP Dose#: PROCEDURE: X-RAY CHEST 2 VIEWS COMPARISON: [facility], XR, CHEST 1 VIEW, 03/22/2018, 23:50. INDICATIONS: Cough FINDINGS: LUNGS: Normal. No significant pulmonary parenchymal abnormalities. VASCULATURE: Normal. Unremarkable pulmonary vasculature. CARDIAC: Normal. No cardiac silhouette abnormality or cardiomegaly. MEDIASTINUM: Normal. No visible mass or adenopathy. PLEURA: Normal. No effusion or pleural thickening. BONES: Mild curvature of the spine to the right, possibly positional. OTHER: Negative. Surgical clips are present in the right upper abdomen. CONCLUSION: No acute disease. Dictated by: Pauline Randolph MD on 11/03/2018 at 8:37 Approved by: Pauline Randolph MD on 11/03/2018 at 8:37 Normal [facility] .Auto Diffon 07-17-2018 Ammonia mass conc (P) 0.60 10 3/mcL Normal 0.09-1.40 [facility] ([place]) Comment on above: Performed By: #### C BC, ADIFF, ANEU, MG, GFR, CMP, PBNP, TROPI, TSH #### [address] [address] Basophils #/vol (Bld) 0.00 10 3/mcL Normal 0.00-0.27 [facility] ([place]) Comment on above: Performed By: #### C BC, ADIFF, ANEU, MG, GFR, CMP, PBNP, TROPI, TSH #### [address] [address] Basophils/100 WBC (Bld) 0.8 % Normal 0.0-2.5 A [facility] ([place]) Comment on above: Performed By: #### C BC, ADIFF, ANEU, MG, GFR, CMP, PBNP, TROPI, TSH #### [address] [address] Eosinophils #/vol (Bld) 0.10 10 3/mcL Normal 0.00-0.65 [facility] ([place]) Comment on above: Performed By: #### C BC, ADIFF, ANEU, MG, GFR, CMP, PBNP, TROPI, TSH #### [address] [address] Eosinophils/100 WBC (Bld) 1.2 % Normal 0.0-6.0 [facility] ([place]) Comment on above: Performed By: #### C BC, ADIFF, ANEU, MG, GFR, CMP, PBNP, TROPI, TSH #### [address] [address] Lymphocytes #/vol (Bld) 1.40 10 3/mcL Normal 0.90-4.32 [facility] ([place]) Comment on above: Performed By: #### C BC, ADIFF, ANEU, MG, GFR, CMP, PBNP, TROPI, TSH #### [address] [address] Lymphocytes/100 WBC (Bld) 23.7 % Normal 20.0-40.0 [facility] ([place]) Comment on above: Performed By: #### C BC, ADIFF, ANEU, MG, GFR, CMP, PBNP, TROPI, TSH #### [address] [address] Monocytes/100 WBC (Bld) 9.9 % Normal 2.0-13.0 [facility] ([place]) Comment on above: Performed By: #### C BC, ADIFF, ANEU, MG, GFR, CMP, PBNP, TROPI, TSH #### [address] [address] Neutrophils/100 WBC (Bld) 64.4 % Normal 50.0-75.0 [facility] ([place]) Comment on above: Performed By: #### C BC, ADIFF, ANEU, MG, GFR, CMP, PBNP, TROPI, TSH #### [address] [address] .GFRon 07-17-2018 GFR Non- >60 Normal [facility] ([place]) Comment on above: Result Comment: GFR Population mean for , Non- Americans Ages 20-29 = 116 mL/min/1.73 sq.m. Ages 30-39 = 107 mL/min/1.73 sq.m. Ages 40-49 = 99 mL/min/1.73 sq.m. Ages 50-59 = 93 mL/min/1.73 sq.m. Ages 60-69 = 85 mL/min/1.73 sq.m. Ages 70+ = 75 mL/min/1.73 sq.m. Chronic Kidney Disease: Less than 60 mL/min/1.73 square meters End Stage Renal Disease: Less than 15 mL/min/1.73 square meters Performed By: #### C BC, ADIFF, ANEU, MG, GFR, CMP, PBNP, TROPI, TSH #### [place] [address] GFR >60 Normal [facility] ([place]) Comment on above: Result Comment: GFR Population mean for , Non- Americans Ages 20-29 = 116 mL/min/1.73 sq.m. Ages 30-39 = 107 mL/min/1.73 sq.m. Ages 40-49 = 99 mL/min/1.73 sq.m. Ages 50-59 = 93 mL/min/1.73 sq.m. Ages 60-69 = 85 mL/min/1.73 sq.m. Ages 70+ = 75 mL/min/1.73 sq.m. Chronic Kidney Disease: Less than 60 mL/min/1.73 square meters End Stage Renal Disease: Less than 15 mL/min/1.73 square meters Performed By: #### C BC, ADIFF, ANEU, MG, GFR, CMP, PBNP, TROPI, TSH #### [address] [address] .NEUABSon 07-17-2018 Neutrophils #/vol (Bld) 3.80 10 3/mcL Normal 2.25-8.10 [facility] ([place]) Comment on above: Performed By: #### C BC, ADIFF, ANEU, MG, GFR, CMP, PBNP, TROPI, TSH #### [address] [address] BMPon 07-17-2018 Creatinine mass conc 0.82 mg/dL Normal 0.60-1.40 [facility] ([place]) Comment on above: Performed By: #### C BC, ADIFF, ANEU, MG, GFR, CMP, PBNP, TROPI, TSH #### [place] [address] Urea nitrogen/Creatinine mass ratio 9.8 ratio Low 10.0-22.0 [facility] ([place]) Comment on above: Performed By: #### C BC, ADIFF, ANEU, MG, GFR, CMP, PBNP, TROPI, TSH #### [place] [address] Calcium mass conc 9.2 mg/dL Normal 8.4-10.1 [facility] ([place]) Comment on above: Performed By: #### C BC, ADIFF, ANEU, MG, GFR, CMP, PBNP, TROPI, TSH #### [place] [address] Chloride molar conc 103 mmol/L Normal 98-110 [facility] ([place]) Comment on above: Performed By: #### C BC, ADIFF, ANEU, MG, GFR, CMP, PBNP, TROPI, TSH #### [place] [address] CO2 molar conc 27 mmol/L Normal 22-32 [facility] ([place]) Comment on above: Performed By: #### C BC, ADIFF, ANEU, MG, GFR, CMP, PBNP, TROPI, TSH #### [place] [address] Electrolyte Balance 10.0 mEq/L Normal 4.0-15.0 [facility] ([place]) Comment on above: Performed By: #### C BC, ADIFF, ANEU, MG, GFR, CMP, PBNP, TROPI, TSH #### [place] [address] Glucose mass conc 84 mg/dL Normal 70-110 [facility] ([place]) Comment on above: Performed By: #### C BC, ADIFF, ANEU, MG, GFR, CMP, PBNP, TROPI, TSH #### [place] [address] Potassium molar conc 3.4 mmol/L Low 3.5-5.0 [facility] ([place]) Comment on above: Performed By: #### C BC, ADIFF, ANEU, MG, GFR, CMP, PBNP, TROPI, TSH #### [place] [address] Sodium molar conc 140 mmol/L Normal 136-145 [facility] ([place]) Comment on above: Performed By: #### C BC, ADIFF, ANEU, MG, GFR, CMP, PBNP, TROPI, TSH #### [place] [address] Urea nitrogen mass conc 8.0 mg/dL Normal 8.0-22.0 [facility] ([place]) Comment on above: Performed By: #### C BC, ADIFF, ANEU, MG, GFR, CMP, PBNP, TROPI, TSH #### [place] [address] CBCon 07-17-2018 Erythrocyte distribution width Ratio (RBC) 13.0 % Normal 11.5-15.5 [facility] ([place]) Comment on above: Performed By: #### C BC, ADIFF, ANEU, MG, GFR, CMP, PBNP, TROPI, TSH #### [place] [address] Hematocrit Volume Fraction (Bld) 47.2 % Normal 40.0-52.0 [facility] ([place]) Comment on above: Performed By: #### C BC, ADIFF, ANEU, MG, GFR, CMP, PBNP, TROPI, TSH #### [place] [address] Hemoglobin mass conc (Bld) 16.5 G/dL Normal 13.0-17.5 [facility] ([place]) Comment on above: Performed By: #### C BC, ADIFF, ANEU, MG, GFR, CMP, PBNP, TROPI, TSH #### [place] [address] MCH Entitic mass (RBC) 31.8 pg Normal 27.0-33.0 [facility] ([place]) Comment on above: Performed By: #### C BC, ADIFF, ANEU, MG, GFR, CMP, PBNP, TROPI, TSH #### [place] [address] MCHC mass conc (RBC) 34.9 G/dL Normal 32.0-36.0 [facility] ([place]) Comment on above: Performed By: #### C BC, ADIFF, ANEU, MG, GFR, CMP, PBNP, TROPI, TSH #### [place] [address] MCV Entitic volume (RBC) 91.1 fL Normal 81.0-100.0 [facility] ([place]) Comment on above: Performed By: #### C BC, ADIFF, ANEU, MG, GFR, CMP, PBNP, TROPI, TSH #### [place] [address] Platelet mean volume Entitic volume (Bld) 9.4 fL Normal 6.4-10.5 [facility] ([place]) Comment on above: Performed By: #### C BC, ADIFF, ANEU, MG, GFR, CMP, PBNP, TROPI, TSH #### [place] [address] Platelets #/vol (Bld) 228 10 3/mcL Normal 150-450 A [facility] ([place]) Comment on above: Performed By: #### C BC, ADIFF, ANEU, MG, GFR, CMP, PBNP, TROPI, TSH #### [place] [address] RBC #/vol (Bld) 5.18 10 6/mcL Normal 4.50-6.00 [facility] ([place]) Comment on above: Performed By: #### C BC, ADIFF, ANEU, MG, GFR, CMP, PBNP, TROPI, TSH #### [address] [address] WBC #/vol (Bld) 6.00 10 3/mcL Normal 4.50-10.80 [facility] ([place]) Comment on above: Performed By: #### C BC, ADIFF, ANEU, MG, GFR, CMP, PBNP, TROPI, TSH #### [place] [id number] MGon 07-17-2018 Magnesium mass conc 2.1 mg/dL Normal 1.6-2.4 [facility] ([place]) Comment on above: Performed By: #### C BC, ADIFF, ANEU, MG, GFR, CMP, PBNP, TROPI, TSH #### [place] [address] TROPIon 07-17-2018 Troponin I.cardiac mass conc ng/mL Normal 0.000-0.040 [facility] ([place]) Comment on above: Result Comment: Trop onin I reference ranges (01/17/14): 0.00-0.040 ng/mL Negative and non-diagnostic. >0.040 ng/mL Consistent with cardiac damage, increased clinical risk and possibility of myocardial infarction. Serial measurements, a rise & fall in test results, clinical history, appropriate symptoms and/or ECG changes may help assess possibility of PA. *Other non-acute coronary syndrome conditions such as CHF, myocarditis, pulmonary emboli, sepsis and cardiac surgery could result in myocardial damage and increased troponin levels. Performed By: #### C BC, ADIFF, ANEU, MG, GFR, CMP, PBNP, TROPI, TSH #### [place] [id number] XR CHEST 1 VIEWon 07-17-2018 XR CHEST 1 VIEW ORIGINAL XR CHEST 1 VIEW PORTABLE AP UPRIGHT DATE AND TIME: 07/17/2018 1:22 PM CLINICAL STATEMENT: chest pain COMPARISON: None FINDINGS: The cardiomediastinal contours are normal. There is no consolidation, vascular congestion, pleural effusion, or pneumothorax. Apical pleural scarring is present bilaterally. Osseous structures appear intact. IMPRESSION: No acute radiographic findings. Interpreted By: Dusty Sabillon MD Preliminary Report By: Dusty Sabillon MD Electronically Signed By: Dusty Sabillon MD Dictated Date: 07/17/2018 1:30:51 PM Prelim Date: 07/17/2018 1:30:51 PM Sign Date: 07/17/2018 1:31:54 PM Normal [facility] ([place]) EMERGENCY REPORTon 11-16-201 8 EMERGENCY REPORT [facility] EMERGENCY ROOM REPORT NAME ACCOUNT SEX AGE ADMIT DISCHARGE PT MED. RECORD# NUMBER DATE DATE TYPE CHEL DOCKERY [id number] Dana 27 03/22/18 03/23/18 3 D [id number] ROOM: ER DATE OF : 1990 DICTATING PHYSICIAN: Melvina Asif ADDENDUM DIAGNOSTIC DATA: Bloodwork showed a BNP of 11, magnesium 2, sodium 140, potassium 3.3, chloride 104, CO2 of 25.6, glucose 134, BUN 8, and creatinine 0.9. Liver functions all came back within normal limits. Anion gap was 14, which is normal. Troponin was less than 0.01. D-dimer was normal at 179. White count was 5.2, hemoglobin 15.3, hematocrit 43.2, and platelet count 175,000. Chest x-ray showed no acute infiltrate or failure. EMERGENCY DEPARTMENT COURSE AND TREATMENT: I did discuss the case with the [facility] transfer line, Dr. Khalil. He has accepted the patient for transfer to their facility at [facility] for admission to the CCU. I have discussed this with the patient, and he is agreeable. The patient will be transferred to [facility] for further cardiac work-up. DIAGNOSIS: Chest pain. Dictated By: Melvina Asif DO 03/23/18 01:29 JOB #: [id number] Transcribed By: lela 03/23/18 11:14 Electronically signed by: E-Sign: Dr. Melvina Asif [email or web address] 03/27/18 14:23 Page 1 of 1 CHEL DOCKERY Emergency Room Report Normal [facility] EMERGENCY REPORT [facility] EMERGENCY ROOM REPORT NAME ACCOUNT SEX AGE ADMIT DISCHARGE PT MED. RECORD# NUMBER DATE DATE TYPE CHEL DOCKERY [id number] Dana 27 03/22/18 03/23/18 3 D [id number] ROOM: ER DATE OF : 1990 DICTATING PHYSICIAN: Melvina Asif TIME SEEN: 11:30 p.m. HISTORY OF PRESENT ILLNESS: This is a 27-year-old white male complaining of some left-sided chest pain described as a pressure and squeezing that started on Friday. He was seen here initially and then was admitted to [facility] night. [facility] did do some testing, which showed that he needed an ablation done for his Arrhz-Gwkqsuost-Pkohy , and he also had 2 blockages and would require coronary artery stents. He was discharged home, and they were going to contact him on Friday to schedule his surgery this coming week. However, he was advised if he had more chest pain once he went home he should go to the local emergency department. The patient did have more chest pain this evening, so he presents here for evaluation. He presently rates his chest pain as a 7 on a severity scale of 1-10. He describes the pain as a pressure and squeezing. He does admit to associated shortness of breath. He gets short of breath even with just walking to the car. He denies any radiation of the pain. PAST MEDICAL HISTORY: The patient states he had a myocardial infarction in August of this year. He also suffers from bradycardia and an irregular heartbeat. He has a history of asthma, and he had a history of Mkxke-Aldihozxo-Gvxjw when he was a baby. PAST SURGICAL HISTORY: He did have an ablation done at [facility] in 1997. He has also had an appendectomy and a cholecystectomy. ALLERGIES: He is allergic to penicillin and Benadryl. SOCIAL HISTORY: He is not a smoker. He denies any use of alcohol or illicit drugs. He does live by himself. REVIEW OF SYSTEMS: He does admit to chest pain and shortness of breath. He denies any cough, sputum, wheezing, abdominal pain, nausea, vomiting, diarrhea, constipation, melena, hematochezia, headache, numbness, unsteady gait, weakness, neck or back pain, joint pain, skin rash or swelling, hives, hay fever, or swollen glands. Further review of systems is negative. PHYSICAL EXAMINATION: Vital signs: Blood pressure is 138/88, pulse 75, respirations 19, pulse oximetry 100%, and weight 120 pounds. The patient is alert and Page 1 of 2 CHEL DOCKERY Emergency Room Report oriented x3. He presently appears in no acute distress. He is pleasant and cooperative, smiling, makes eye contact. HEENT: Head appears atraumatic. Pupils are equal and reactive to light. Red reflexes are intact bilaterally. Extraocular muscles are intact. No conjunctival injection. No scleral icterus or lid edema. Nose exhibits no rhinorrhea or epistaxis. Mouth: Mucous membranes are moist. No pharyngeal erythema. Uvula is midline and elevates. Neck is supple. Trachea is midline. No JVD or lymphadenopathy. No posterior cervical tenderness. No nuchal rigidity. Lungs are clear to auscultation in all lung alonso. No adventitious sounds are noted. No accessory muscle use. CV: Heart rate and rhythm are regular without murmur. Abdomen is soft and nontender with normoactive bowel sounds x4 quadrants. No guarding or rigidity. No rebound. No palpable abdominal masses. No hepatosplenomegaly. Back exhibits no midline or paraspinal region tenderness. No increased paraspinal muscle rigidity. Negative Delroy's sign. Extremities: No edema or cyanosis. Peripheral pulses are intact. No motor or sensory deficits are noted. 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 Skin is warm and dry. No diaphoresis or rash. Neurologic examination shows the patient to be alert and oriented x4. No motor or sensory deficits are noted. Normal speech. DIAGNOSTIC DATA: EKG done at 2329 hours shows normal sinus rhythm with a sinus arrhythmia at a rate of 65 beats per minute. [place] was approximately 60 degrees. There were no acute ST-segment changes noted. EMERGENCY DEPARTMENT COURSE AND TREATMENT: Presently, I do have a cardiac work-up pending, and then we will discuss the case with [facility]. DIAGNOSIS: Chest pain. Dictated By: Melvina Asif DO 03/23/18 00:05 JOB #: [id number] Transcribed By: lela 03/23/18 09:01 Electronically signed by: E-Sign: Dr. Melvina Asif D.O. 03/27/18 14:22 Page 2 of 2 CHEL DOCKERY Emergency Room Report Normal [facility] EMERGENCY REPORT [facility] EMERGENCY ROOM REPORT NAME ACCOUNT SEX AGE ADMIT DISCHARGE PT MED. RECORD# NUMBER DATE DATE TYPE NAHED CHEL [id number] M 27 03/19/18 03/20/18 3 D [id number] ROOM: ER DATE OF : 1990 DICTATING PHYSICIAN: Ben Bain HISTORY OF PRESENT ILLNESS: This is a 27-year-old male with a past medical history of Dhalm-Ocryicihv-Dcflp syndrome who presents with concern for chest pain, shortness of breath, and syncope. The patient states that today at work on 5 different occasions he had chest pain, shortness of breath with diaphoresis, and then a full syncopal episode. 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 The patient states he should be on medication, but he is not taking these medications. He states that the chest pain that he had was retrosternal and aching. He is currently not complaining of any chest pain, shortness of breath, nausea, vomiting, or diaphoresis. He denies any head trauma during his syncopal episodes. He denies any drug or alcohol abuse. PAST MEDICAL HISTORY: Dqtay-Byesnqega-Xgqyx and bradycardia. PAST SURGICAL HISTORY: Ablation. SOCIAL HISTORY: He denies any drugs, alcohol or tobacco abuse. REVIEW OF SYSTEMS: Ten systems were reviewed and otherwise negative unless stated above. PHYSICAL EXAMINATION: The patient appears well and nontoxic. Vital signs upon arrival: Temperature is 37.4 degrees Celsius, pulse 70, respirations 18, blood pressure 123/77, and oxygen saturation 96% on room air. Head: Normocephalic without signs of trauma. Neck: Trachea is midline, supple. No cervical lymphadenopathy. No tenderness to palpation in the cervical midline. Lungs: Clear to auscultation bilaterally without wheezing or rhonchi. Heart: S1 and S2 appreciated in a regular rhythm without murmurs. Abdomen is soft and nontender. Bowel sounds are present. No hepatosplenomegaly. Musculoskeletal: Muscle strength is +5/5 in the upper and lower extremities. Neurologic: Alert and oriented x3. Cranial nerves II through XII are intact. Skin: No evidence of rash. Psychiatric: Mood and affect are normal. DIAGNOSTIC DATA: EKG on arrival shows sinus bradycardia without acute signs of ischemia. Laboratory work is within normal limits. Chest x-ray is negative. Troponin is also negative. Repeat EKG one hour after arrival is also normal and unchanged from previous. Page 1 of 2 CHEL DOCKERY Emergency Room Report EMERGENCY DEPARTMENT COURSE AND TREATMENT: The patient appears well and nontoxic. Initial EKG shows no concern for ischemia or arrhythmia. The patient is mentating appropriately. Laboratory work is within normal limits. Troponin is negative. His chest x-ray is also negative. The patient also has a negative d-dimer. Due to the patient having a significant history for arrhythmia with a concerning history of chest pain, shortness of breath and syncope, he will be transferred to a facility which has electrophysiology capability. I spoke with Dr. Richardson at [facility], who is agreeable with transfer to CCU Step-Down. The patient was monitored in the department for a significant period of time without any evidence of arrhythmia on the monitor. He had no further syncope within the department. The patient was transferred in stable condition. Dictated By: Ben Bain DO 03/20/18 04:57 JOB #: [id number] Transcribed By: lela 03/20/18 09:07 Electronically signed by: E-SIGN: Ben Bain D.O. 03/27/18 06:47 Page 2 of 2 CHEL DOCKERY Emergency Room Report Normal [facility] .Auto Diffon 03-23-2018 Ammonia mass conc (P) 0.40 10 3/mcL Normal 0.09-1.40 [facility] ([place]) Comment on above: Performed By: #### C BC, ADIFF, ANEU, MG, GFR, CMP, PBNP, TROPI, TSH #### [address] [address] Basophils #/vol (Bld) 0.00 10 3/mcL Normal 0.00-0.27 [facility] ([place]) Comment on above: Performed By: #### C BC, ADIFF, ANEU, MG, GFR, CMP, PBNP, TROPI, TSH #### [address] [address] Basophils/100 WBC (Bld) 1.1 % Normal 0.0-2.5 A [facility] ([place]) Comment on above: Performed By: #### C BC, ADIFF, ANEU, MG, GFR, CMP, PBNP, TROPI, TSH #### [address] [address] Eosinophils #/vol (Bld) 0.20 10 3/mcL Normal 0.00-0.65 [facility] ([place]) Comment on above: Performed By: #### C BC, ADIFF, ANEU, MG, GFR, CMP, PBNP, TROPI, TSH #### [address] [address] Eosinophils/100 WBC (Bld) 5.3 % Normal 0.0-6.0 [facility] ([place]) Comment on above: Performed By: #### C BC, ADIFF, ANEU, MG, GFR, CMP, PBNP, TROPI, TSH #### [address] [address] Lymphocytes #/vol (Bld) 1.00 10 3/mcL Normal 0.90-4.32 [facility] ([place]) Comment on above: Performed By: #### C BC, ADIFF, ANEU, MG, GFR, CMP, PBNP, TROPI, TSH #### [address] [address] Lymphocytes/100 WBC (Bld) 22.7 % Normal 20.0-40.0 [facility] ([place]) Comment on above: Performed By: #### C BC, ADIFF, ANEU, MG, GFR, CMP, PBNP, TROPI, TSH #### [address] [address] Monocytes/100 WBC (Bld) 9.8 % Normal 2.0-13.0 A [facility] ([place]) Comment on above: Performed By: #### C BC, ADIFF, ANEU, MG, GFR, CMP, PBNP, TROPI, TSH #### [address] [address] Neutrophils/100 WBC (Bld) 61.1 % Normal 50.0-75.0 [facility] ([place]) Comment on above: Performed By: #### C BC, ADIFF, ANEU, MG, GFR, CMP, PBNP, TROPI, TSH #### [address] [address] .GFRon 03-23-2018 GFR Non- >60 Normal [facility] ([place]) Comment on above: Result Comment: GFR Population mean for , Non- Americans Ages 20-29 = 116 mL/min/1.73 sq.m. Ages 30-39 = 107 mL/min/1.73 sq.m. Ages 40-49 = 99 mL/min/1.73 sq.m. Ages 50-59 = 93 mL/min/1.73 sq.m. Ages 60-69 = 85 mL/min/1.73 sq.m. Ages 70+ = 75 mL/min/1.73 sq.m. Chronic Kidney Disease: Less than 60 mL/min/1.73 square meters End Stage Renal Disease: Less than 15 mL/min/1.73 square meters Performed By: #### C BC, ADIFF, ANEU, MG, GFR, CMP, PBNP, TROPI, TSH #### [address] [address] GFR >60 Normal [facility] ([place]) Comment on above: Result Comment: GFR Population mean for , Non- Americans Ages 20-29 = 116 mL/min/1.73 sq.m. Ages 30-39 = 107 mL/min/1.73 sq.m. Ages 40-49 = 99 mL/min/1.73 sq.m. Ages 50-59 = 93 mL/min/1.73 sq.m. Ages 60-69 = 85 mL/min/1.73 sq.m. Ages 70+ = 75 mL/min/1.73 sq.m. Chronic Kidney Disease: Less than 60 mL/min/1.73 square meters End Stage Renal Disease: Less than 15 mL/min/1.73 square meters Performed By: #### C BC, ADIFF, ANEU, MG, GFR, CMP, PBNP, TROPI, TSH #### [address] [address] .NEUABSon 03-23-2018 Neutrophils #/vol (Bld) 2.70 10 3/mcL Normal 2.25-8.10 [facility] ([place]) Comment on above: Performed By: #### C BC, ADIFF, ANEU, MG, GFR, CMP, PBNP, TROPI, TSH #### [address] [address] BMPon 03-23-2018 Calcium mass conc 8.4 mg/dL Normal 8.4-10.1 [facility] ([place]) Comment on above: Performed By: #### C BC, ADIFF, ANEU, MG, GFR, CMP, PBNP, TROPI, TSH #### [place] [address] Chloride molar conc 107 mmol/L Normal 98-110 [facility] ([place]) Comment on above: Performed By: #### C BC, ADIFF, ANEU, MG, GFR, CMP, PBNP, TROPI, TSH #### [place] [address] CO2 molar conc 28 mmol/L Normal 22-32 [facility] ([place]) Comment on above: Performed By: #### C BC, ADIFF, ANEU, MG, GFR, CMP, PBNP, TROPI, TSH #### [place] [address] Creatinine mass conc 0.82 mg/dL Normal 0.60-1.40 [facility] ([place]) Comment on above: Performed By: #### C BC, ADIFF, ANEU, MG, GFR, CMP, PBNP, TROPI, TSH #### [place] [address] Electrolyte Balance 7.0 mEq/L Normal 4.0-15.0 [facility] ([place]) Comment on above: Performed By: #### C BC, ADIFF, ANEU, MG, GFR, CMP, PBNP, TROPI, TSH #### [place] [address] Glucose mass conc 90 mg/dL Normal 70-110 [facility] ([place]) Comment on above: Performed By: #### C BC, ADIFF, ANEU, MG, GFR, CMP, PBNP, TROPI, TSH #### [place] [address] Potassium molar conc 3.9 mmol/L Normal 3.5-5.0 [facility] ([place]) Comment on above: Performed By: #### C BC, ADIFF, ANEU, MG, GFR, CMP, PBNP, TROPI, TSH #### [place] [address] Sodium molar conc 142 mmol/L Normal 136-145 [facility] ([place]) Comment on above: Performed By: #### C BC, ADIFF, ANEU, MG, GFR, CMP, PBNP, TROPI, TSH #### [place] [address] Urea nitrogen mass conc 7.0 mg/dL Low 8.0-22.0 A [facility] ([place]) Comment on above: Performed By: #### C BC, ADIFF, ANEU, MG, GFR, CMP, PBNP, TROPI, TSH #### [place] [address] Urea nitrogen/Creatinine mass ratio 8.5 ratio Low 10.0-22.0 [facility] ([place]) Comment on above: Performed By: #### C BC, ADIFF, ANEU, MG, GFR, CMP, PBNP, TROPI, TSH #### [place] [phone] BNP (B-TYPE NATRIURETIC PEPT DARRELL)on 03-23-2018 Natriuretic peptide B (Bld) [Mass/Vol] 11 pg/mL Normal 1 - 100 [facility] Comment on above: Performed By: #### 2 16868 #### [facility],[address] [place] [address] CBCon 03-23-2018 Erythrocyte distribution width Ratio (RBC) 12.5 % Normal 11.5-15.5 [facility] ([place]) Comment on above: Performed By: #### C BC, ADIFF, ANEU, MG, GFR, CMP, PBNP, TROPI, TSH #### [place] [phone] Hematocrit Volume Fraction (Bld) 40.1 % Normal 40.0-52.0 [facility] ([place]) Comment on above: Performed By: #### C BC, ADIFF, ANEU, MG, GFR, CMP, PBNP, TROPI, TSH #### [place] [phone] Hemoglobin mass conc (Bld) 14.0 G/dL Normal 13.0-17.5 [facility] ([place]) Comment on above: Performed By: #### C BC, ADIFF, ANEU, MG, GFR, CMP, PBNP, TROPI, TSH #### [place] [address] MCH Entitic mass (RBC) 32.1 pg Normal 27.0-33.0 [facility] ([place]) Comment on above: Performed By: #### C BC, ADIFF, ANEU, MG, GFR, CMP, PBNP, TROPI, TSH #### [place] [address] MCHC mass conc (RBC) 35.0 G/dL Normal 32.0-36.0 [facility] ([place]) Comment on above: Performed By: #### C BC, ADIFF, ANEU, MG, GFR, CMP, PBNP, TROPI, TSH #### [place] [address] MCV Entitic volume (RBC) 91.7 fL Normal 81.0-100.0 [facility] ([place]) Comment on above: Performed By: #### C BC, ADIFF, ANEU, MG, GFR, CMP, PBNP, TROPI, TSH #### [place] [address] Platelet mean volume Entitic volume (Bld) 8.6 fL Normal 6.4-10.5 [facility] ([place]) Comment on above: Performed By: #### C BC, ADIFF, ANEU, MG, GFR, CMP, PBNP, TROPI, TSH #### [place] [address] Platelets #/vol (Bld) 160 10 3/mcL Normal 150-450 A [facility] ([place]) Comment on above: Performed By: #### C BC, ADIFF, ANEU, MG, GFR, CMP, PBNP, TROPI, TSH #### [place] [address] RBC #/vol (Bld) 4.37 10 6/mcL Low 4.50-6.00 [facility] ([place]) Comment on above: Performed By: #### C BC, ADIFF, ANEU, MG, GFR, CMP, PBNP, TROPI, TSH #### [address] [address] WBC #/vol (Bld) 4.40 10 3/mcL Low 4.50-10.80 [facility] ([place]) Comment on above: Performed By: #### C BC, ADIFF, ANEU, MG, GFR, CMP, PBNP, TROPI, TSH #### [address] [address] Basophils (Bld) [#/Vol] 0.00 x10EE3/UL Normal 0.00 - 0 .10 [facility] Comment on above: Performed By: #### 2 85984 #### [facility],[address] [place] [address] Basophils/100 WBC (Bld) 0.9 % Normal 0.0 - 2.0 [facility] Comment on above: Performed By: #### 2 34921 #### [facility],[address] [place] [address] CBC Normal [facility] Comment on above: Result Comment: CBC- COMPLETE BLOOD COUNT Performed By: #### 2 23941 #### [address] [address] Eosinophils (Bld) [#/Vol] 0.40 x10EE3/UL Normal 0.00 - 0.50 [facility] Comment on above: Performed By: #### 2 08452 #### [facility],[address] [place] [address] Eosinophils/100 WBC (Bld) 6.8 % Normal 0.0 - 7.0 [facility] Comment on above: Performed By: #### 2 65772 #### [place] [address] Erythrocyte distribution width (RBC) [Ratio] 12.4 % Normal 12.0 - 15.6 [facility] Comment on above: Performed By: #### 2 03986 #### [facility],[address],[place] [address] Hematocrit (Bld) [Volume fraction] 43.2 % Normal 40.0 - 52.0 [facility] Comment on above: Performed By: #### 2 19135 #### [facility],[address] [place] [address] Hemoglobin (Bld) [Mass/Vol] 15.3 g/dL Normal 13.0 - 17.5 [facility] Comment on above: Performed By: #### 2 67817 #### [facility],[address] [place] [address] Lymphocytes (Bld) [#/Vol] 1.30 x10EE3/UL Normal 0.80 - 2.80 [facility] Comment on above: Performed By: #### 2 46984 #### [facility],[address] [place] [address] Lymphocytes/100 WBC (Bld) 24.2 % Normal 20.0 - 45.0 [facility] Comment on above: Performed By: #### 2 51151 #### [facility],[address] [place] [address] MANUAL DIFF N/A Normal [facility] Comment on above: Performed By: #### 2 53541 #### [facility],[address] [place] [address] MCH (RBC) [Entitic mass] 32 pg Normal 27 - 33 [facility] Comment on above: Performed By: #### 2 48165 #### [facility],[address] [place] [address] MCHC (RBC) [Mass/Vol] 35 X10 3 Normal 32 - 36 [facility] Comment on above: Performed By: #### 2 45382 #### [facility],[address] [place] [address] MCV (RBC) [Entitic vol] 90 fL Normal 81 - 98 [facility] Comment on above: Performed By: #### 2 26703 #### [facility],[address] [place] [address] Monocytes (Bld) [#/Vol] 0.60 x10EE3/UL Normal 0.20 - 1 .00 [facility] Comment on above: Performed By: #### 2 02764 #### [facility],[address] [place] [address] MONOS % 11.3 % High 0.0 - 10.0 [facility] Comment on above: Performed By: #### 2 84151 #### [facility],[address] [place] [address] Morphology Nilo (Bld) [Interp] N/A Normal [facility] Comment on above: Result Comment: {CD] Performed By: #### 2 28168 #### [address] [address] Neutrophils (Bld) [#/Vol] 3.00 x10EE3/UL Normal 1.50 - 7.10 [facility] Comment on above: Performed By: #### 2 84001 #### [address] [address] Neutrophils/100 WBC (Bld) 56.8 % Normal 46.0 - 76.0 [facility] Comment on above: Performed By: #### 2 95110 #### [address] [address] Platelet mean volume (Bld) [Entitic vol] 8.8 fL Normal 6.4 - 10.5 [facility] Comment on above: Result Comment: AUTO MATED DIFFERENTIAL Performed By: #### 2 90347 #### [address] [address] Platelets (Bld) [#/Vol] 175 x10EE3/UL Normal 150 - 450 [facility] Comment on above: Performed By: #### 2 47720 #### [address] [address] RBC (Bld) [#/Vol] 4.78 x 10EE6/UL Normal 4.50 - 6.00 J oel [facility] Comment on above: Performed By: #### 2 18098 #### [facility],[address] [place] [address] WBC (Bld) [#/Vol] 5.2 x 10EE3/UL Normal 4.5 - 10.8 [facility] Comment on above: Performed By: #### 2 20842 #### [facility],[address] [place] [address] CHEST 1 VIEWon 03-23-2018 CHEST 1 VIEW [place] [address] Patient: CHEL DOCKERY Phone#: : [phone] Age: 27 Gender: M Pt. Type: ER Account: [id number] Location: [facility] Ordering: MELVINA ASIF Exam Date: 03/22/2018/23:50 Family Phys: NO DOCTOR Charge Code: 705976 Physician: Gray Order #: [id number] DLP Dose#: PROCEDURE: X-RAY CHEST 1 VIEW COMPARISON: [facility], XR, CHEST 1 VIEW, 03/20/2018, 0:40. INDICATIONS: Chest Pain FINDINGS: LUNGS: Normal. No significant pulmonary parenchymal abnormalities. VASCULATURE: Normal. Unremarkable pulmonary vasculature. CARDIAC: Normal. No cardiac silhouette abnormality or cardiomegaly. MEDIASTINUM: Normal. No visible mass or adenopathy. PLEURA: Normal. No effusion or pleural thickening. BONES: Normal. No fracture or visible bony lesion. OTHER: Negative. CONCLUSION: No acute disease. No significant change has occurred. Dictated by: Pauline Randolph MD on 03/23/2018 at 8:41 Approved by: Pauline Randolph MD on 03/23/2018 at 8:41 Normal [facility] CMP with eGFRon 03-23-2018 Age - Reported 27 years Normal [facility] Comment on above: Performed By: #### 2 48944 #### [facility],[address] [place] [address] Albumin [Mass/Vol] 4.8 g/dL Normal 3.4 - 4.8 [facility] Comment on above: Performed By: #### 2 41195 #### [facility],[address] [place] [address] Albumin/Globulin [Mass ratio] 2.2 {ratio} High 0.9 - 1.6 [facility] Comment on above: Performed By: #### 2 53032 #### [facility],[address] [place] [address] ALK PHOS 68 U/L Normal 38 - 126 [facility] Comment on above: Performed By: #### 2 74722 #### [facility],[address] [place] [address] ALT/SGPT 12 U/L Normal 10 - 40 [facility] Comment on above: Performed By: #### 2 82363 #### [facility],[address] [place] [address] Anion gap [Moles/Vol] 14 mmol/L Normal 10 - 20 [facility] Comment on above: Performed By: #### 2 80303 #### [facility],[address] [place] [address] AST/SGOT 12 U/L Low 13 - 39 [facility] Comment on above: Performed By: #### 2 57802 #### [facility],[address] [place] [address] B/C RATIO 9 ratio Normal 0 - 30 [facility] Comment on above: Performed By: #### 2 40728 #### [facility],[address] [place] [address] Bilirubin [Mass/Vol] 1.0 mg/dL Normal 0.0 - 1.5 [facility] Comment on above: Performed By: #### 2 99136 #### [facility],[address] [place] [address] Calcium [Mass/Vol] 9.7 mg/dL Normal 8.6 - 10.2 [facility] Comment on above: Performed By: #### 2 06903 #### [facility],[address] [place] [address] Chloride [Moles/Vol] 104 mmol/L Normal 98 - 107 [facility] Comment on above: Performed By: #### 2 51994 #### [facility],[address] [place] [address] CO2 [Moles/Vol] 25.6 mmol/L Normal 21.0 - 31.0 [facility] Comment on above: Performed By: #### 2 74691 #### [facility],[address] [place] [address] Creatinine [Mass/Vol] 0.9 mg/dL Normal 0.7 - 1.3 [facility] Comment on above: Performed By: #### 2 33285 #### [facility],[address] [place] [address] GFR/1.73 sq M predicted among non-blacks MDRD (S/P/Bld) [Vol rate/Area] mL/min/{1.73_m2} Normal 60 - 999 [facility] Comment on above: Performed By: #### 2 69276 #### [facility],[address] [place] [address] Result Comment: ACCO RDING TO THE NATIONAL KIDNEY DISEASE EDUCATION PROGRAM(NKDE), A NORMAL eGFR IS A VALUE GREATER THAN OR EQUAL TO 60 ML/MIN/1.73 SQ METERS. CHRONIC KIDNEY DISEASE: <60mL/MIN/1.73 SQ METERS KIDNEY FAILURE: <15mL/MIN/1.73 SQ METERS THIS TEST SHOULD ONLY BE USED FOR PATIENTS 18 YEARS OF AGE AND OLDER. GFR/1.73 sq M predicted among non-blacks MDRD (S/P/Bld) [Vol rate/Area] Normal [facility] Comment on above: Result Comment: COMP REHENSIVE METABOLIC PANEL Performed By: #### 2 88626 #### [facility],[address] [place] [address] Globulin (S) [Mass/Vol] 2.2 g/dL Normal 1.5 - 3.8 [facility] Comment on above: Performed By: #### 2 23392 #### [facility],[address] [place] [address] Glucose [Mass/Vol] 134 mg/dL High 74 - 106 [facility] Comment on above: Performed By: #### 2 89969 #### [address] [address] Potassium [Moles/Vol] 3.3 mmol/L Low 3.5 - 5.1 [facility] Comment on above: Performed By: #### 2 06224 #### [facility],[address] [place] [address] Protein [Mass/Vol] 7.0 g/dL Normal 6.4 - 8.3 [facility] Comment on above: Performed By: #### 2 28509 #### [facility],[address] [place] [address] Sodium [Moles/Vol] 140 mmol/L Normal 136 - 145 [facility] Comment on above: Performed By: #### 2 10673 #### [facility],[address] [place] [address] Urea nitrogen [Mass/Vol] 8 mg/dL Normal 6 - 20 [facility] Comment on above: Performed By: #### 2 19754 #### [facility],[address] [place] [address] D-DIMER, QUANTITATIVEon 03-12 D-DIMER QUANT 179 ng/ml Normal 0 - 230 [facility] Comment on above: Performed By: #### 2 99948 #### [address],[place] [address] D-DIMER, QUANTITATIVE Normal Darrin l [facility] Comment on above: Result Comment: ASA T D-DIMER Performed By: #### 2 39229 #### [facility],[address] [place] [address] MAGNESIUMon 03-23-2018 Magnesium [Mass/Vol] 2.0 mg/dL Normal 1.6 - 2.6 [facility] Comment on above: Performed By: #### 2 37228 #### [facility],[address] [place] [address] TROPIon 03-23-2018 Troponin I.cardiac mass conc ng/mL Normal 0.000-0.040 [facility] ([place]) Comment on above: Result Comment: Trop onin I reference ranges (01/17/14): 0.00-0.040 ng/mL Negative and non-diagnostic. >0.040 ng/mL Consistent with cardiac damage, increased clinical risk and possibility of myocardial infarction. Serial measurements, a rise & fall in test results, clinical history, appropriate symptoms and/or ECG changes may help assess possibility of PA. *Other non-acute coronary syndrome conditions such as CHF, myocarditis, pulmonary emboli, sepsis and cardiac surgery could result in myocardial damage and increased troponin levels. Performed By: #### C BC, ADIFF, ANEU, MG, GFR, CMP, PBNP, TROPI, TSH #### [place] [address] Troponin I.cardiac mass conc ng/mL Normal 0.000-0.040 [facility] ([place]) Comment on above: Result Comment: Trop onin I reference ranges (01/17/14): 0.00-0.040 ng/mL Negative and non-diagnostic. >0.040 ng/mL Consistent with cardiac damage, increased clinical risk and possibility of myocardial infarction. Serial measurements, a rise & fall in test results, clinical history, appropriate symptoms and/or ECG changes may help assess possibility of PA. *Other non-acute coronary syndrome conditions such as CHF, myocarditis, pulmonary emboli, sepsis and cardiac surgery could result in myocardial damage and increased troponin levels. Performed By: #### C BC, ADIFF, ANEU, MG, GFR, CMP, PBNP, TROPI, TSH #### [place] [address] TROPONINon 03-23-2018 Troponin I.cardiac [Mass/Vol] ng/mL Normal 0.00 - 0.05 [facility] Comment on above: Result Comment: Elev ated troponin (above the 99th percentile) usually indicates myocardial ischemia. Results must be interpreted within the clinical setting. 1.Non-ischemic pathology can also cause elevated troponin levels (e.g., acute pulmonary embolism, myocarditis, pericarditis, heart failure, intracranial injury, rhabdomyolisis, sepsis, shock and renal insufficiency). 2.Approximately 1% of healthy adults have elevated troponin levels. 3.Analytical false positive results rarely occur(due to multiple interferences such as heterophile antibodies). Performed By: #### 2 09823 #### [place] [id number] Troponin I.cardiac [Mass/Vol] ng/mL Normal 0.00 - 0.05 [facility] Comment on above: Result Comment: Elev ated troponin (above the 99th percentile) usually indicates myocardial ischemia. Results must be interpreted within the clinical setting. 1.Non-ischemic pathology can also cause elevated troponin levels (e.g., acute pulmonary embolism, myocarditis, pericarditis, heart failure, intracranial injury, rhabdomyolisis, sepsis, shock and renal insufficiency). 2.Approximately 1% of healthy adults have elevated troponin levels. 3.Analytical false positive results rarely occur(due to multiple interferences such as heterophile antibodies). Performed By: #### 2 65528 #### [address] [address] .Auto Diffon 03-20-2018 Ammonia mass conc (P) 0.50 10 3/mcL Normal 0.09-1.40 [facility] ([place]) Comment on above: Performed By: #### C BC, ADIFF, ANEU, MG, GFR, CMP, PBNP, TROPI, TSH #### [place] [address] Basophils #/vol (Bld) 0.00 10 3/mcL Normal 0.00-0.27 [facility] ([place]) Comment on above: Performed By: #### C BC, ADIFF, ANEU, MG, GFR, CMP, PBNP, TROPI, TSH #### [address] [address] Basophils/100 WBC (Bld) 0.8 % Normal 0.0-2.5 A [facility] ([place]) Comment on above: Performed By: #### C BC, ADIFF, ANEU, MG, GFR, CMP, PBNP, TROPI, TSH #### [address] [address] Eosinophils #/vol (Bld) 0.40 10 3/mcL Normal 0.00-0.65 [facility] ([place]) Comment on above: Performed By: #### C BC, ADIFF, ANEU, MG, GFR, CMP, PBNP, TROPI, TSH #### [address] [address] Eosinophils/100 WBC (Bld) 7.0 % High 0.0-6.0 [facility] ([place]) Comment on above: Performed By: #### C BC, ADIFF, ANEU, MG, GFR, CMP, PBNP, TROPI, TSH #### [address] [address] Lymphocytes #/vol (Bld) 1.60 10 3/mcL Normal 0.90-4.32 [facility] ([place]) Comment on above: Performed By: #### C BC, ADIFF, ANEU, MG, GFR, CMP, PBNP, TROPI, TSH #### [address] [address] Lymphocytes/100 WBC (Bld) 27.8 % Normal 20.0-40.0 [facility] ([place]) Comment on above: Performed By: #### C BC, ADIFF, ANEU, MG, GFR, CMP, PBNP, TROPI, TSH #### [address] [address] Monocytes/100 WBC (Bld) 8.7 % Normal 2.0-13.0 A [facility] ([place]) Comment on above: Performed By: #### C BC, ADIFF, ANEU, MG, GFR, CMP, PBNP, TROPI, TSH #### [address] [address] Neutrophils/100 WBC (Bld) 55.7 % Normal 50.0-75.0 [facility] ([place]) Comment on above: Performed By: #### C BC, ADIFF, ANEU, MG, GFR, CMP, PBNP, TROPI, TSH #### [address] [address] .GFRon 03-20-2018 GFR Non- >60 Normal [facility] ([place]) Comment on above: Result Comment: GFR Population mean for , Non- Americans Ages 20-29 = 116 mL/min/1.73 sq.m. Ages 30-39 = 107 mL/min/1.73 sq.m. Ages 40-49 = 99 mL/min/1.73 sq.m. Ages 50-59 = 93 mL/min/1.73 sq.m. Ages 60-69 = 85 mL/min/1.73 sq.m. Ages 70+ = 75 mL/min/1.73 sq.m. Chronic Kidney Disease: Less than 60 mL/min/1.73 square meters End Stage Renal Disease: Less than 15 mL/min/1.73 square meters Performed By: #### C BC, ADIFF, ANEU, MG, GFR, CMP, PBNP, TROPI, TSH #### [address] [address] GFR >60 Normal [facility] ([place]) Comment on above: Result Comment: GFR Population mean for , Non- Americans Ages 20-29 = 116 mL/min/1.73 sq.m. Ages 30-39 = 107 mL/min/1.73 sq.m. Ages 40-49 = 99 mL/min/1.73 sq.m. Ages 50-59 = 93 mL/min/1.73 sq.m. Ages 60-69 = 85 mL/min/1.73 sq.m. Ages 70+ = 75 mL/min/1.73 sq.m. Chronic Kidney Disease: Less than 60 mL/min/1.73 square meters End Stage Renal Disease: Less than 15 mL/min/1.73 square meters Performed By: #### C BC, ADIFF, ANEU, MG, GFR, CMP, PBNP, TROPI, TSH #### [place] [address] .NEUABSon 03-20-2018 Neutrophils #/vol (Bld) 3.20 10 3/mcL Normal 2.25-8.10 [facility] ([place]) Comment on above: Performed By: #### C BC, ADIFF, ANEU, MG, GFR, CMP, PBNP, TROPI, TSH #### [place] [address] CBCon 03-20-2018 Erythrocyte distribution width Ratio (RBC) 13.0 % Normal 11.5-15.5 [facility] ([place]) Comment on above: Performed By: #### C BC, ADIFF, ANEU, MG, GFR, CMP, PBNP, TROPI, TSH #### [place] [address] Hematocrit Volume Fraction (Bld) 44.6 % Normal 40.0-52.0 [facility] ([place]) Comment on above: Performed By: #### C BC, ADIFF, ANEU, MG, GFR, CMP, PBNP, TROPI, TSH #### [place] [address] Hemoglobin mass conc (Bld) 15.5 G/dL Normal 13.0-17.5 [facility] ([place]) Comment on above: Performed By: #### C BC, ADIFF, ANEU, MG, GFR, CMP, PBNP, TROPI, TSH #### [place] [address] MCH Entitic mass (RBC) 32.1 pg Normal 27.0-33.0 [facility] ([place]) Comment on above: Performed By: #### C BC, ADIFF, ANEU, MG, GFR, CMP, PBNP, TROPI, TSH #### [place] [address] MCHC mass conc (RBC) 34.8 G/dL Normal 32.0-36.0 [facility] ([place]) Comment on above: Performed By: #### C BC, ADIFF, ANEU, MG, GFR, CMP, PBNP, TROPI, TSH #### [place] [address] MCV Entitic volume (RBC) 92.3 fL Normal 81.0-100.0 [facility] ([place]) Comment on above: Performed By: #### C BC, ADIFF, ANEU, MG, GFR, CMP, PBNP, TROPI, TSH #### [place] [address] Platelet mean volume Entitic volume (Bld) 8.6 fL Normal 6.4-10.5 [facility] ([place]) Comment on above: Performed By: #### C BC, ADIFF, ANEU, MG, GFR, CMP, PBNP, TROPI, TSH #### [place] [address] Platelets #/vol (Bld) 179 10 3/mcL Normal 150-450 A [facility] ([place]) Comment on above: Performed By: #### C BC, ADIFF, ANEU, MG, GFR, CMP, PBNP, TROPI, TSH #### [place] [address] RBC #/vol (Bld) 4.83 10 6/mcL Normal 4.50-6.00 [facility] ([place]) Comment on above: Performed By: #### C BC, ADIFF, ANEU, MG, GFR, CMP, PBNP, TROPI, TSH #### [place] [address] WBC #/vol (Bld) 5.80 10 3/mcL Normal 4.50-10.80 [facility] ([place]) Comment on above: Performed By: #### C BC, ADIFF, ANEU, MG, GFR, CMP, PBNP, TROPI, TSH #### [place] [address] Basophils (Bld) [#/Vol] 0.10 x10EE3/UL Normal 0.00 - 0 .10 [facility] Comment on above: Performed By: #### 2 90403 #### [facility],[address] [place] [address] Basophils/100 WBC (Bld) 0.9 % Normal 0.0 - 2.0 [facility] Comment on above: Performed By: #### 2 56377 #### [facility],[address] [place] [address] CBC Normal [facility] Comment on above: Result Comment: CBC- COMPLETE BLOOD COUNT Performed By: #### 2 23365 #### [facility],[address] [place] [address] Eosinophils (Bld) [#/Vol] 0.30 x10EE3/UL Normal 0.00 - 0.50 [facility] Comment on above: Performed By: #### 2 60215 #### [address] [address] Eosinophils/100 WBC (Bld) 4.9 % Normal 0.0 - 7.0 [facility] Comment on above: Performed By: #### 2 91301 #### [facility],[address] [place], [place] [id number] Erythrocyte distribution width (RBC) [Ratio] 13.0 % Normal 12.0 - 15.6 [facility] Comment on above: Performed By: #### 2 35149 #### [facility],[address] [place], [place] [id number] Hematocrit (Bld) [Volume fraction] 42.6 % Normal 40.0 - 52.0 [facility] Comment on above: Performed By: #### 2 36502 #### [facility],[address] [place] [address] Hemoglobin (Bld) [Mass/Vol] 15.5 g/dL Normal 13.0 - 17.5 [facility] Comment on above: Performed By: #### 2 38003 #### [address] [address] Lymphocytes (Bld) [#/Vol] 1.50 x10EE3/UL Normal 0.80 - 2.80 [facility] Comment on above: Performed By: #### 2 16130 #### [facility],[address] [place] [address] Lymphocytes/100 WBC (Bld) 25.0 % Normal 20.0 - 45.0 [facility] Comment on above: Performed By: #### 2 19761 #### [facility],[address] [place] [address] MANUAL DIFF N/A Normal [facility] Comment on above: Performed By: #### 2 71919 #### [facility],[address] [place] [address] MCH (RBC) [Entitic mass] 33 pg Normal 27 - 33 [facility] Comment on above: Performed By: #### 2 77403 #### [facility],[address] [place] [address] MCHC (RBC) [Mass/Vol] 36 X10 3 Normal 32 - 36 [facility] Comment on above: Performed By: #### 2 25816 #### [facility],[address] [place] [address] MCV (RBC) [Entitic vol] 90 fL Normal 81 - 98 [facility] Comment on above: Performed By: #### 2 84646 #### [facility],[address] [place] [address] Monocytes (Bld) [#/Vol] 0.60 x10EE3/UL Normal 0.20 - 1 .00 [facility] Comment on above: Performed By: #### 2 92658 #### [facility],[address] [place] [address] MONOS % 10.1 % High 0.0 - 10.0 [facility] Comment on above: Performed By: #### 2 97461 #### [facility],[address] [place] [address] Morphology Nilo (Bld) [Interp] N/A Normal [facility] Comment on above: Result Comment: {CD] Performed By: #### 2 34802 #### [facility],[address] [place] [address] Neutrophils (Bld) [#/Vol] 3.60 x10EE3/UL Normal 1.50 - 7.10 [facility] Comment on above: Performed By: #### 2 08568 #### [facility],[address] [place], [place] [phone] Neutrophils/100 WBC (Bld) 59.1 % Normal 46.0 - 76.0 [facility] Comment on above: Performed By: #### 2 77641 #### [facility],[address] [place] [address] Platelet mean volume (Bld) [Entitic vol] 9.2 fL Normal 6.4 - 10.5 [facility] Comment on above: Result Comment: AUTO MATED DIFFERENTIAL Performed By: #### 2 36834 #### [address] [address] Platelets (Bld) [#/Vol] 190 x10EE3/UL Normal 150 - 450 [facility] Comment on above: Performed By: #### 2 29802 #### [facility],[address] [place] [address] RBC (Bld) [#/Vol] 4.73 x 10EE6/UL Normal 4.50 - 6.00 [facility] Comment on above: Performed By: #### 2 52433 #### [facility],[address] [place] [address] WBC (Bld) [#/Vol] 6.2 x 10EE3/UL Normal 4.5 - 10.8 [facility] Comment on above: Performed By: #### 2 48785 #### [address] [address] CHEST 1 VIEWon 03-20-2018 CHEST 1 VIEW [place] [address] [place], [place] [address] Patient: CHEL DOCKERY Phone#: : 1990 Age: 27 Gender: M Pt. Type: ER Account: [id number] Location: [facility] Ordering: BEN BAIN Exam Date: 03/20/2018/0:40 Family Phys: NO DOCTOR Charge Code: 216621 Physician: Gray Order #: [id number] DLP Dose#: PROCEDURE: X-RAY CHEST 1 VIEW COMPARISON: None. INDICATIONS: Chest Pain FINDINGS: LUNGS: Normal. No significant pulmonary parenchymal abnormalities. VASCULATURE: Normal. Unremarkable pulmonary vasculature. CARDIAC: Normal. No cardiac silhouette abnormality or cardiomegaly. MEDIASTINUM: Normal. No visible mass or adenopathy. PLEURA: Normal. No effusion or pleural thickening. BONES: Normal. No fracture or visible bony lesion. OTHER: Monitoring leads project across the thorax. CONCLUSION: No acute disease. Dictated by: Estrellita Fiore MD on 03/20/2018 at 8:01 Approved by: Estrellita Fiore MD on 03/20/2018 at 8:01 Normal [facility] CMPon 03-20-2018 Albumin/Globulin mass ratio 1.7 {ratio} High 0.9-1.6 [facility] ([place]) Comment on above: Performed By: #### C BC, ADIFF, ANEU, MG, GFR, CMP, PBNP, TROPI, TSH #### [address] [address] ALP enzyme act/vol 83 U/L Normal 38-126 [facility] ([place]) Comment on above: Performed By: #### C BC, ADIFF, ANEU, MG, GFR, CMP, PBNP, TROPI, TSH #### [address] [address] Bili Total 1.4 mg/dL High 0.2-1.2 [facility] ([place]) Comment on above: Performed By: #### C BC, ADIFF, ANEU, MG, GFR, CMP, PBNP, TROPI, TSH #### [address] [address] Globulin mass conc (S) 2.5 G/dL Normal 1.5-3.8 [facility] ([place]) Comment on above: Performed By: #### C BC, ADIFF, ANEU, MG, GFR, CMP, PBNP, TROPI, TSH #### [place] [address] Protein mass conc 6.8 G/dL Normal 6.0-8.5 [facility] ([place]) Comment on above: Performed By: #### C BC, ADIFF, ANEU, MG, GFR, CMP, PBNP, TROPI, TSH #### [place] [address] Albumin mass conc 4.3 G/dL Normal 3.2-4.8 [facility] ([place]) Comment on above: Performed By: #### C BC, ADIFF, ANEU, MG, GFR, CMP, PBNP, TROPI, TSH #### [address] [address] ALT enzyme act/vol 20 U/L Normal 12-55 [facility] ([place]) Comment on above: Performed By: #### C BC, ADIFF, ANEU, MG, GFR, CMP, PBNP, TROPI, TSH #### [address] [address] AST enzyme act/vol 10 U/L Normal 8-34 [facility] ([place]) Comment on above: Performed By: #### C BC, ADIFF, ANEU, MG, GFR, CMP, PBNP, TROPI, TSH #### [address] [address] Calcium mass conc 8.4 mg/dL Normal 8.4-10.1 [facility] ([place]) Comment on above: Performed By: #### C BC, ADIFF, ANEU, MG, GFR, CMP, PBNP, TROPI, TSH #### [place] [id number] Chloride molar conc 106 mmol/L Normal 98-110 [facility] ([place]) Comment on above: Performed By: #### C BC, ADIFF, ANEU, MG, GFR, CMP, PBNP, TROPI, TSH #### [place] [id number] CO2 molar conc 29 mmol/L Normal 22-32 [facility] ([place]) Comment on above: Performed By: #### C BC, ADIFF, ANEU, MG, GFR, CMP, PBNP, TROPI, TSH #### [place] [address] Creatinine mass conc 0.85 mg/dL Normal 0.60-1.40 [facility] ([place]) Comment on above: Performed By: #### C BC, ADIFF, ANEU, MG, GFR, CMP, PBNP, TROPI, TSH #### [place] [address] Electrolyte Balance 7.0 mEq/L Normal 4.0-15.0 [facility] ([place]) Comment on above: Performed By: #### C BC, ADIFF, ANEU, MG, GFR, CMP, PBNP, TROPI, TSH #### [place] [address] Glucose mass conc 99 mg/dL Normal 70-110 [facility] ([place]) Comment on above: Performed By: #### C BC, ADIFF, ANEU, MG, GFR, CMP, PBNP, TROPI, TSH #### [place] [address] Potassium molar conc 3.5 mmol/L Normal 3.5-5.0 [facility] ([place]) Comment on above: Performed By: #### C BC, ADIFF, ANEU, MG, GFR, CMP, PBNP, TROPI, TSH #### [place] [address] Sodium molar conc 142 mmol/L Normal 136-145 [facility] ([place]) Comment on above: Performed By: #### C BC, ADIFF, ANEU, MG, GFR, CMP, PBNP, TROPI, TSH #### [facility] [address] [place], [place] [address] Urea nitrogen mass conc 5.0 mg/dL Low 8.0-22.0 A [facility] ([place]) Comment on above: Performed By: #### C BC, ADIFF, ANEU, MG, GFR, CMP, PBNP, TROPI, TSH #### [facility] [address] [place] [address] Urea nitrogen/Creatinine mass ratio 5.9 ratio Low 10.0-22.0 [facility] ([place]) Comment on above: Performed By: #### C BC, ADIFF, ANEU, MG, GFR, CMP, PBNP, TROPI, TSH #### [facility] [address] [place] [address] CMP with eGFRon 03-20-2018 Age - Reported 27 years Normal [facility] Comment on above: Performed By: #### 2 81289 #### [facility],[address] [place] [address] Albumin [Mass/Vol] 4.7 g/dL Normal 3.4 - 4.8 [facility] Comment on above: Performed By: #### 2 32335 #### [facility],[address] [place] [address] Albumin/Globulin [Mass ratio] 2.2 {ratio} High 0.9 - 1.6 [facility] Comment on above: Performed By: #### 2 85455 #### [facility],[address] [place] [address] ALK PHOS 64 U/L Normal 38 - 126 [facility] Comment on above: Performed By: #### 2 36289 #### [facility],[address] [place] [address] ALT/SGPT 13 U/L Normal 10 - 40 [facility] Comment on above: Performed By: #### 2 64163 #### [facility],[address] [place] [address] Anion gap [Moles/Vol] 12 mmol/L Normal 10 - 20 [facility] Comment on above: Performed By: #### 2 78643 #### [facility],[address] [place] [address] AST/SGOT 12 U/L Low 13 - 39 [facility] Comment on above: Performed By: #### 2 45629 #### [facility],[address] [place] [address] B/C RATIO 8 ratio Normal 0 - 30 [facility] Comment on above: Performed By: #### 2 70730 #### [facility],[address] [place] [address] Bilirubin [Mass/Vol] 0.9 mg/dL Normal 0.0 - 1.5 [facility] Comment on above: Performed By: #### 2 56309 #### [facility],[address] [place] [address] Calcium [Mass/Vol] 9.5 mg/dL Normal 8.6 - 10.2 [facility] Comment on above: Performed By: #### 2 73692 #### [facility],[address] [place] [address] Chloride [Moles/Vol] 105 mmol/L Normal 98 - 107 [facility] Comment on above: Performed By: #### 2 83328 #### [facility],[address] [place] [address] CO2 [Moles/Vol] 27.5 mmol/L Normal 21.0 - 31.0 [facility] Comment on above: Performed By: #### 2 95249 #### [facility],[address] [place] [address] Creatinine [Mass/Vol] 0.8 mg/dL Normal 0.7 - 1.3 [facility] Comment on above: Performed By: #### 2 54588 #### [facility],[address] [place] [address] GFR/1.73 sq M predicted among non-blacks MDRD (S/P/Bld) [Vol rate/Area] mL/min/{1.73_m2} Normal 60 - 999 [facility] Comment on above: Result Comment: ACCO RDING TO THE NATIONAL KIDNEY DISEASE EDUCATION PROGRAM(NKDE), A NORMAL eGFR IS A VALUE GREATER THAN OR EQUAL TO 60 ML/MIN/1.73 SQ METERS. CHRONIC KIDNEY DISEASE: <60mL/MIN/1.73 SQ METERS KIDNEY FAILURE: <15mL/MIN/1.73 SQ METERS THIS TEST SHOULD ONLY BE USED FOR PATIENTS 18 YEARS OF AGE AND OLDER. Performed By: #### 2 29951 #### [address] [address] GFR/1.73 sq M predicted among non-blacks MDRD (S/P/Bld) [Vol rate/Area] Normal [facility] Comment on above: Result Comment: COMP REHENSIVE METABOLIC PANEL Performed By: #### 2 47241 #### [address] [address] Globulin (S) [Mass/Vol] 2.1 g/dL Normal 1.5 - 3.8 [facility] Comment on above: Performed By: #### 2 93427 #### [address] [address] Glucose [Mass/Vol] 84 mg/dL Normal 74 - 106 [facility] Comment on above: Performed By: #### 2 42399 #### [address] [address] Potassium [Moles/Vol] 3.4 mmol/L Low 3.5 - 5.1 [facility] Comment on above: Performed By: #### 2 60680 #### [address] [address] Protein [Mass/Vol] 6.8 g/dL Normal 6.4 - 8.3 [facility] Comment on above: Performed By: #### 2 23799 #### [address] [address] Sodium [Moles/Vol] 141 mmol/L Normal 136 - 145 [facility] Comment on above: Performed By: #### 2 19459 #### [facility],[address] [place] [address] Urea nitrogen [Mass/Vol] 6 mg/dL Normal 6 - 20 [facility] Comment on above: Performed By: #### 2 55021 #### [facility],[address] [place] [address] CRPHSon 03-20-2018 CRP, High Sensitive <0.16 Low 0.20-3.00 [facility] ([place]) Comment on above: Result Comment: Rela tive Risk Category and Average hs-CRP Level: Higher Risk: > 5.0 mg/L Guidelines support that hs-CRP can be used as an independent predictor of increased coronary risk; however, hs-CRP results should only be interpreted in conjunction with other cardiac risk factors in establishing overall cardiac risk for a given patient. Performed By: #### C RPHS, ESR #### [address] [address] D-DIMER, QUANTITATIVEon D-DIMER QUANT 166 ng/ml Normal 0 - 230 [facility] Comment on above: Performed By: #### 2 37928 #### [facility],[address] [place] [address] D-DIMER, QUANTITATIVE Normal [facility] Comment on above: Result Comment: ASA T D-DIMER Performed By: #### 2 03134 #### [facility],[address] [place] [address] ESRon 03-20-2018 ESR Velocity (Bld) 1 mm/h Normal 0-15 [facility] ([place]) Comment on above: Performed By: #### C BC, ADIFF, ANEU, MG, GFR, CMP, PBNP, TROPI, TSH #### [address] [address] MGon 03-20-2018 Magnesium mass conc 2.1 mg/dL Normal 1.6-2.4 [facility] ([place]) Comment on above: Performed By: #### C BC, ADIFF, ANEU, MG, GFR, CMP, PBNP, TROPI, TSH #### [address] [address] PBNPon 03-20-2018 Natriuretic peptide B mass conc (Bld) 41 pg/mL Normal 0-450 [facility] ([place]) Comment on above: Result Comment: NT-p roBNP results of less than 300 pg/mL effectively rules out acute congestive heart failure with 99% negative predictive value. Performed By: #### C BC, ADIFF, ANEU, MG, GFR, CMP, PBNP, TROPI, TSH #### [address] [address] TROPIon 03-20-2018 Troponin I.cardiac mass conc ng/mL Normal 0.000-0.040 [facility] ([place]) Comment on above: Result Comment: Trop onin I reference ranges (01/17/14): 0.00-0.040 ng/mL Negative and non-diagnostic. >0.040 ng/mL Consistent with cardiac damage, increased clinical risk and possibility of myocardial infarction. Serial measurements, a rise & fall in test results, clinical history, appropriate symptoms and/or ECG changes may help assess possibility of PA. *Other non-acute coronary syndrome conditions such as CHF, myocarditis, pulmonary emboli, sepsis and cardiac surgery could result in myocardial damage and increased troponin levels. Performed By: #### C BC, ADIFF, ANEU, MG, GFR, CMP, PBNP, TROPI, TSH #### [address] [address] TROPONINon 03-20-2018 Troponin I.cardiac [Mass/Vol] ng/mL Normal 0.00 - 0.05 [facility] Comment on above: Result Comment: Elev ated troponin (above the 99th percentile) usually indicates myocardial ischemia. Results must be interpreted within the clinical setting. 1.Non-ischemic pathology can also cause elevated troponin levels (e.g., acute pulmonary embolism, myocarditis, pericarditis, heart failure, intracranial injury, rhabdomyolisis, sepsis, shock and renal insufficiency). 2.Approximately 1% of healthy adults have elevated troponin levels. 3.Analytical false positive results rarely occur(due to multiple interferences such as heterophile antibodies). Performed By: #### 2 63426 #### [facility] [id number] [place] [address] 03-20-2018 Thyrotropin Qn 1.200 mcIU/mL Normal 0.360-3.740 [facility] ([place]) Comment on above: Result Comment: Igor zurita note as of 11/23/16 new pediatric reference intervals were added for this test. Performed By: #### C BC, ADIFF, ANEU, MG, GFR, CMP, PBNP, TROPI, TSH #### [place] [address] Vital Signs Date Time Vital Sign Value Performing Clinician Facility 05-26-2024 16:00-0500 Heart rate 92 /min Elo Mixon DO Work Phone: [facility] 05-26-2024 16:00-0500 Respiratory rate 30 /min Elo Mixon DO Work Phone: [facility] 05-26-2024 16:00-0500 SaO2% (BldA) [Mass fraction] 96 % Elo Mixon DO Work Phone: [facility] 05-26-2024 13:16-0500 Diastolic blood pressure 70 mm[Hg] Elo Mixon DO Work Phone: [facility] 05-26-2024 13:16-0500 Systolic blood pressure 119 mm[Hg] Elo Mixon DO Work Phone: [facility] 05-26-2024 11:03-0500 Body height 167.6 cm Elo Mixon DO Work Phone: [facility] 05-26-2024 11:03-0500 Body mass index (BMI) [Ratio] 17.43 kg/m2 Elo Mixon DO Work Phone: [facility] 05-26-2024 11:03-0500 Body temperature 99.61 [degF] Elo Mixon DO Work Phone: [facility] 05-26-2024 11: Body weight 48.99 kg Elo iMxon DO Work Phone: [facility] Encounters Encounter Date Encounter Type Care Provider Facility Start: 10-29-2024 End: 10-29-2024 ambulatory [facility] Start: 10-26-2024 ambulatory [facility] Start: 09-22-2024 End: 09-22-2024 [facility] System Start: 06-09-2024 ambulatory [facility] Start: 06-04-2024 End: 06-04-2024 ambulatory [facility] Start: 06-02-2024 ambulatory ANUSHKA Cee [facility] Start: 05-28-2024 End: 05-28-2024 ambulatory [facility] Start: 05-27-2024 ambulatory [facility] Start: 05-26-2024 End: 05-26-2024 Emergency department patient visit Elo Mixon DO Work Phone: [facility] Comment on above: Lower respiratory in fection (Primary Dx); RSV (acute bronchiolitis due to respiratory syncytial virus); Mild persistent asthma with (acute) exacerbation Start: 05-18-2024 End: 05-18-2024 ambulatory AGAPITO LAGUNAS [facility] Start: 05-18-2024 End: 05-18-2024 Subsequent hospital visit by physician Agapito Lagunas MD Work Phone: [facility] Comment on above: Mild intermittent as thma without complication Start: 05-17-2024 End: 05-17-2024 ambulatory NANCY BARFIELD [facility] Start: 05-17-2024 Encounter for genera l adult medical examination without abnormal [facility]: [facility] Start: 05-10-2024 End: 05-10-2024 ambulatory NANYC BARFIELD [facility] Start: 11-03-2018 End: 11-03-2018 Emergency department patient visit SAMIRA BORGES [facility] Start: 07-17-2018 End: 07-17-2018 Emergency department patient visit NONE PHYSICIAN Facility:A Start: 05-01-2018 Patient encounter procedure ROXIE TRINH Facility:A Start: 03-23-2018 End: 03-23-2018 Patient encounter procedure ALFONSO KHALIL Facility:A Start: 03-23-2018 End: 03-23-2018 Emergency department patient visit MELVINA CAMPOS [facility] Start: 03-20-2018 End: 03-21-2018 Patient encounter procedure NONE PHYSICIAN Facility:A Start: 03-20-2018 End: 03-20-2018 Emergency department patient visit BEN BAIN [facility] Procedures Date Procedure Procedure Detail Performing Clinician Start: 05-26-2024 RESPIRATORY THERAPY TO INSTRUCT Jocy Wing APRN, NP Work Phone: Start: 05-26-2024 Ct abdomen & pelvis w/contrast material Michelle Herrera MD Work Phone: Start: 05-26-2024 Ct angiography chest w/contrast/noncontrast Michelle Herrera MD Work Phone: Start: 05-26-2024 Assay of troponin quantitative Michelle Herrera MD Work Phone: Start: 05-26-2024 Comprehensive metabo lic panel Michelle Herrera MD Work Phone: Start: 05-26-2024 DARK GREEN TOP Michelle mendes MD Work Phone: Start: 05-26-2024 GOLD TOP Michelle sage MD Work Phone: Start: 05-26-2024 LAVENDER TOP Michelle sage MD Work Phone: Start: 05-26-2024 LIGHT BLUE TOP Michelle mendes MD Work Phone: Start: 05-26-2024 LIGHT GREEN TOP Michelle ko MD Work Phone: Start: 05-26-2024 RAINBOW DRAW Michelle sage MD Work Phone: Start: 05-26-2024 SARS-COV-2, FLU A, F DOROTEO B, RSV (PCR) PANEL Michelle Herrera MD Work Phone: Start: 05-26-2024 WAIVED SARS-COV-2, F DOROTEO A, FLU B, RSV (PCR) PANEL Michelle Herrera MD Work Phone: Start: 05-26-2024 WHITE TOP Michelle sage MD Work Phone: Start: 05-26-2024 Ecg routine ecg w/le ast 12 lds trcg only w/o i&r Michelle Herrera MD Work Phone: Start: 05-18-2024 Brncdilat rspse spmt ry pre&post-brncdilat admn Agapito Lagunas MD Work Phone: Start: 05-17-2024 Adult depression scr eening assessment Agapito Lagunas MD Work Phone: Plan of Treatment Date Care Activity Detail Author Start: 05-18-2025 ANNUAL WELLNESS VISIT ANNUAL WELLNESS VISIT [facility] Start: 05-17-2025 Depression screening using PHQ-9 (Patient Health Questionnaire 9) score DEPRESSION SCREENING [facility] Start: 06-25-2024 End: 06-25-2024 Admission to same day surgery center 06/25/2024 11:38 AM EST - 06/25/2024 12:18 PM EST Surgery [address] [address] Mehran Alanis MD [address] [place] [address] ESOPHAGOGASTRODUODENOSCOPY [facility] Comment on above: ESOPHAGOGASTRODUODENOSCOPY Start: 06-25-2024 End: 06-25-2024 Esophagogastroduodenoscopy transoral diagnostic ESOPHAGOGASTRODUODENOSCOPY Weight loss Epigastric pain 06/25/2024 11:38 AM EST [facility] Start: 06-25-2024 Subsequent hospital visit by physician 06/25/2024 11:38 AM EST Hospital Encounter [address] [address] Mehran Alanis MD [address] [place] [address] [facility] Start: 06-09-2024 End: 06-09-2024 Patient encounter procedure 06/09/2024 2:00 PM EST Appointment [facility] [address] [place] [address] Nancy Barfield PA [address] [place] [address] Discharge Disposition: Home or Self Care [facility] Start: 06-02-2024 End: 06-02-2024 Patient encounter procedure 06/02/2024 10:00 AM EST Appointment [facility] [address] [place] [address] Anushka Alegria APRN BLOCK SAW OPERATOR [address] [place] [address] [facility] Start: 01-11-2024 COVID-19 VACCINE ( season) COVID-19 VACCINE ( season) [facility] Start: 01-11-2024 Influenza vaccination given INFLUENZA VACCINE (#1) [facility] Start: 2001 Administration of diphtheria + tetanus + acellular pertussis vaccine DTAP/TDAP/TD VACCINE (1 - Tdap) [facility] Payers Date Payer Category Payer Medicaid MEDICAID [id number] 2024 Medicaid O [facility] [employer] [id number] 2018 Self-pay 1990 Unknown [id number] [id number] 1990 Unknown [id number] 2.16.840.1.119119.3.579.2.627 1990 Unknown [id number] 2.16.840.1.312417.3.579.2.627 1990 Unknown [id number] 2.16.840.1.474291.3.579.2.627 1990 Unknown [id number] 2.16.840.1.133650.3.579.2.297 1990 Unknown [id number] 2.16.840.1.878867.3.579.2.297 1990 Unknown [id number] 2.16.840.1.613857.3.579.2.297 1990 Unknown [id number] 2.16.840.1.151341.3.579.2.297 1990 Unknown [id number] 2.16.840.1.387688.3.579.2.297 1990 Unknown [id number] 2.16.840.1.687749.3.579.2.297 1990 Unknown [id number] 2.16.840.1.702332.3.579.2.297 1990 Unknown [id number] 2.16.840.1.349526.3.579.2.297 1990 Unknown [id number] 2.16.840.1.300864.3.579.2.297 1990 Unknown [id number] 2.16.840.1.804098.3.579.2.297 1990 Unknown [id number] 2.16.840.1.827492.3.579.2.297 1990 Unknown [id number] 2.16.840.1.486432.3.579.2.297 1990 Unknown [id number] 2.16.840.1.900176.3.579.2.297 Medicaid [id number] Unknown Unknown [id number] 2.16.840.1.045100.3.579.2.1059 Unknown [id number] [id number]59 Social History Date Type Detail Facility Start: 05-10-2024 Tobacco smoking stat [facility] Never smoked tobacco [facility] Start: 05-10-2024 Tobacco use and exposure User of smokeless tobacco [facility] Start: 05-17-2024 End: 05-26-2024 Alcoholic beverage intake Current drinker of alcohol (finding) [facility] Start: 05-17-2024 End: 05-26-2024 History of Social function [facility] Start: 05-17-2024 End: 05-26-2024 Tobacco use panel [facility] PHQ-2: Most Recent Result Yes - No Depression [facility] Start: 05-10-2024 Tobacco Comment Nicotine pouches [facility] Start: 05-10-2024 Alcohol Comment rare [facility] Start: 1990 Sex assigned at Not on file [facility] Emergency department Note 05-26-2024 Fara Hoffman RN - 05/26/2024 1:22 PM EST Note Date & Type Note Facility 05-26-2024 Emergency department Note Breathing TX in progress at this time. Pt tolerating well [facility] Emergency department Note 05-26-2024 Fara Hoffman RN - 05/26/2024 1:22 PM Michelle Moore MD - 05/26/2024 11:03 AM Sabina Pace RN - 05/26/2024 10:59 AM EST Note Date & Type Note Facility 05-26-2024 Emergency department Note Breathing TX in progress at this time. Pt tolerating well ED TRIAGE NOTE: Several weeks of wheezing and dyspnea worse in recent days with fever to 100 last night.. In addition unexplained weight loss for which PCP has ordered CTs and endoscopies which have not yet been completed Afebrile in no acute distress CTs and other diagnostic studies ordered, given Michelle Hill MD 05/26/24 1104 Pt states he "can't breath, very wheezy and coughing". Pt states has had symptoms for several weeks and states is getting worse. Pt admits to fever last night. Denies ill contacts. Pt admits to being seen by a provider last week that had taken him off of his asthma medications last week and has been getting much worse since that time. Resp easy, non-labored. Skin p/w/d. Nad noted. documented in this encounter [facility] Physician Emergency department Note 05-26-2024 Michelle Herrera MD - 05/26/2024 11:03 AM EST Note Date & Type Note Facility 05-26-2024 Physician Emergency department Note ED TRIAGE NOTE: Several weeks of wheezing and dyspnea worse in recent days with fever to 100 last night.. In addition unexplained weight loss for which PCP has ordered CTs and endoscopies which have not yet been completed Afebrile in no acute distress CTs and other diagnostic studies ordered, given Michelle Hill MD 05/26/24 1104 [employer] [facility] Work Phone: Emergency department Triage note 05-26-2024 Sabina Ríos, RN - 05/26/2024 10:59 AM EST Note Date & Type Note Facility 05-26-2024 Emergency department Triage note Pt states he "can't breath, very wheezy and coughing". Pt states has had symptoms for several weeks and states is getting worse. Pt admits to fever last night. Denies ill contacts. Pt admits to being seen by a provider last week that had taken him off of his asthma medications last week and has been getting much worse since that time. Resp easy, non-labored. Skin p/w/d. Nad noted. [facility] Evaluation note Note Date & Type Note Facility Evaluation note Diagnosis Mild intermittent asthma without complication Unspecified asthma Weight loss Loss of weight Epigastric pain Abdominal pain, epigastric documented in this encounter [facility] Evaluation note Note Date & Type Note Facility Evaluation note Diagnosis Lower respiratory infection- Primary Other diseases of respiratory system, not elsewhere classified RSV (acute bronchiolitis due to respiratory syncytial virus) Acute bronchiolitis due to respiratory syncytial virus (RSV) Mild persistent asthma with (acute) exacerbation Weight loss Loss of weight Epigastric pain Abdominal pain, epigastric documented in this encounter [facility] Summary Purpose Family History No Family History Records FoundNo Family History Records FoundNo Family History Records FoundNo Family History Records FoundNo Family History Records Found Advance Directives No Advanced Directives Records FoundNo Advanced Directives Records FoundNo Advanced Directives Records FoundNo Advanced Directives Records FoundNo Advanced Directives Records Found Additional Source Comments (unrecognized sect ion and content) No Status Records FoundNo Status Records FoundNo Status Records FoundNo Status Records FoundNo Status Records Found INFORMATION SOURCE (unrecogn ized section and content) DATE CREATED AUTHOR 07/19/2018 [facility] ([place]) DATE CREATED AUTHOR AUTHOR'S ORGANIZ ATION 01/02/2019 [facility] DATE CREATED AUTHOR AUTHOR'S ORGANIZ ATION 04/29/2021 [facility] DATE CREATED AUTHOR AUTHOR'S ORGANIZ ATION 06/12/2024 [facility] DATE CREATED AUTHOR AUTHOR'S ORGANIZ ATION 11/23/2024 [employer] [facility] Reason for Visit (unrecogniz ed section and content) Reason Onset Date Comments Procedure 05/18/2024 Reason Comments Cough Generalized Body Aches Fever Care Teams (unrecognized sec tion and content) Ticket Dispenser Changer Relationship Specialty Start Date End Date Agapito Lagunas MD [address] [facility] [place], [place] [id number] PCP - General Internal Medicine 05/17/24 Ticket Dispenser Changer Relationship Specialty Start Date End Date Pcp, None [address] [place] [address] PCP - General 05/26/24 Scheduled Active and Recently Administ ered Medications (unrecognized section and content) Medication Order 05/24/2024 05/25/2024 05/26/2024 Acetaminophen (OFIRMEV) IVPB 735 mg (COMPLETED) 735 mg (15 mg/kg 49 kg), Intravenous, Administer over 15 Minutes, On Fri05/26/24 at 1352, ONCE, 1 dose 1332 (New Bag - Prov ider: Fara Hoffman RN)1530 (Stopped - Provider: Fara Hoffman RN) albuterol 2.5mg-ipratropium 0.5mg/3ml (DUONEB) nebulizer soln 3 mL (COMPLETED) 3 mL, Nebulization, ONCE RT, 1 dose, On Fri05/26/24 at 1137 1300 (Given - Provid er: Nellie Lopez RRT) albuterol 2.5mg-ipratropium 0.5mg/3ml (DUONEB) nebulizer soln 6 mL (COMPLETED) 6 mL, Nebulization, Once, 1 dose, On Fri05/26/24 at 1316 1324 (Given - Provid er: Nellie Lopez RRT) Albuterol Inhaler (PROVENTIL) 1 home pack 1 packet (COMPLETED) 1 packet, Inhalation, PRIOR TO DISCHARGE, 1 dose, On Fri05/26/24 at 1606, packet given to pt. per physician for home self.administration 1609 ([facility] by Physician/Other Qualified Staff Member - Provider: Fara Hoffman, DORIAN) Albuterol nebulizer soln 2.5 mg (COMPLETED) 2.5 mg, Nebulization, NOW, 1 dose, On Fri05/26/24 at 1602 1541 (Given - Provid er: Nellie Lopez, SEDIMENT REMEDIATION CONSULTANT) LOCM iohexol (OMNIPAQUE 350MG/ML) injection 75 mL (COMPLETED) 75 mL, Intravenous, ONCE, 1 dose, On Fri05/26/24 at 1305, PO dose for age 13 years to 15 years: Mix 21 cc of Omnipaque 350 in water/juice/clear liquid (non carbonated) to total of 600 cc (20oz). Give 2 doses of 300 cc 15 minutes apart. Scan time 30-60 minutes after first dose. PO dose for age 15 years to 18 years: Mix 28 cc of Omnipaque 350 in water/juice/clear liquid (non carbonated) to total of 800 cc (27oz). Give 2 doses of 400 cc 15 minutes apart. Scan time 30-60 minutes after first dose. PO dose for age > 18 years: Mix 50 cc of Omnipaque 350 in water/juice/clear liquid (non carbonated) to total of 950 cc (32oz). Give 2 doses of 475 cc 15 minutes apart. Scan time 30-60 minutes after first dose., Radiology 1417 (Given - Provid er: Griselda Rendon, RT) methylPREDNISolone Na Suc (PF) (SOLU-MEDROL) injection 60 mg (COMPLETED) 60 mg, Intravenous, NOW, 1 dose, On Fri05/26/24 at 1345 1321 (Given - Provid er: Fara Hoffman RN) sodium chloride 0.9% bolus 0.9 % solution 1,000 mL (COMPLETED) 1,000 mL, Intravenous, Administer over 2 Hours, On Fri05/26/24 at 1345, ONCE, 1 dose 1319 (Bolus - NEW ba g, off the pump (rate>999 mL/hr) - CHARGE - Provider: Gabbie Block LPN)1530 (Stopped - Provider: Fara Hoffman RN) FOR RECORDS PERTAINING TO PATIENTS WHO ARE OR HAVE BEEN ENROLLED IN A CHEMICAL DEPENDENCY/SUBSTANCEABUSE PROGRAM, SOME INFORMATION MAY BE OMITTED. This clinical summary was aggregated from multiple sources. Caution should be exercised in using it in the provision of clinical care. This summary normalizes information from multiple sources, and as a consequence, information in this document may materially change the coding, format and clinical context of patient data. In addition, data may be omitted in some cases. CLINICAL DECISIONS SHOULD BE BASED ON THE PRIMARY CLINICAL RECORDS. [facility]. provides no warranty or guarantee of the accuracy or completeness of information in this document.
[2024-12-03] MEDS: Lidocaine 1% /Epi 1:100 (20ml) 20 ML Vial INFILT (21:36)
[2024-12-03 22:56] VITALS: BP 121/74; PULSE 81; RESP 16; TEMP 36.6; O2SAT 99
== END 2024-12-03 22:57 | disposition home or self-care (01) ==
PROVIDERS: Emergency Provider Emergency Medicine; Visit Provider Emergency Medicine
DX: S81.812A Laceration without foreign body, left lower leg, initial encounter (principal); W26.8XXA Contact with other sharp object(s), not elsewhere classified, initial encounter; Y99.0 Civilian activity done for income or pay; R03.0 Elevated blood-pressure reading, without diagnosis of hypertension; J45.909 Unspecified asthma, uncomplicated; F17.220 Nicotine dependence, chewing tobacco, uncomplicated
CPT/HCPCS: 12001; 99283

== ENCOUNTER 2024-12-07 20:18 | Emergency (ER) | payer OTHER, MEDICAID, SELFPAY ==
[2024-12-07 20:20] VITALS: BP 124/80; PULSE 65; RESP 18; TEMP 36.6; O2SAT 100; BMI 19.3
--- NOTE | 2024-12-07 20:54 | RAD_ITS ---
PROCEDURE: RIGHT FOOT MIN 3 VIEWS 12/07/2024 REASON FOR EXAM: PAIN, UNABLE TO BEAR WEIGHT TECHNIQUE: RIGHT FOOT MIN 3 VIEWS COMPARISON: None. FINDINGS: No evidence of acute fracture or dislocation. Alignment is anatomic. Preserved joint spaces. No aggressive osseous lesion. No appreciable soft tissue swelling or radiopaque foreign body. RAD/Foot min 3 Views IMPRESSION: No evidence of acute fracture or dislocation. Reading Location: [id number]
--- NOTE | 2024-12-07 21:40 | EDS_ITS ---
HPI History of Present Illness Chief Complaint: Lower Extremity Injury Informant: patient Narrative Narrative: Patient is a 34-year-old male with history of WPW and asthma presenting with right foot injury. Patient states he was at work when he excellently dropped a metal carmelina on his right foot. He states the corner of it which is a heavy part hit his foot. He states it weighed between 25 and 50 pounds. Denies any associate numbness or tingling. Is having pain at the site. Came in for further evaluation. Notes he did take a gabapentin from his mom before coming in with some relief of his pain. Did not take anything else. No other complaints or concerns at this time. States he just want to make sure was not broken. [facility] Medical History (Updated 12/07/24 @ 21:[address] Pat Escamilla DO) Asthma Sinus bradycardia WPW (Azqww-Yvddlpimm-Qwpgq syndrome) Home Medications ?Medication ?Instructions ?Recorded ?Last Taken ?Type albuterol sulfate 90 mcg/actuation 2 puff inhalation Q 6H PRN Wheezing 04/15/18 Unknown History aerosol inhaler (Ventolin HFA) albuterol sulfate 90 mcg/actuation 1 - 2 puff inhalati on Q4H PRN PRN 05/17/20 Unknown Rx aerosol inhaler Wheezing ##1 ondansetron HCl 4 mg tablet 4 mg PO Q8H PRN nausea and 07/25/20 Unknown Rx (Zofran) vomiting #7 tabs Allergy/AdvReac Type Severity Reaction Status Date / Time azithromycin Allergy Severe Anaphylaxis Verified 12/07/24 20:20 diphenhydramine HCl (From Allergy Severe Rash Verified 12/07/24 20:20 Benadryl) Penicillins Allergy Severe Hives Verified 12/07/24 20:20 bee venom protein (honey bee) Allergy Anaphylaxis Verified 12/07/24 20:20 ibuprofen AdvReac Severe Increased Verified 12/07/24 20:20 Asthma symptoms Family History Other Asthma Diabetes Heart disease Hypertension Surgical History History of cholecystectomy History of appendectomy History of cardiac radiofrequency ablation (~1997) Social History Smoking Status: Current every day smoker tobacco type: e-cigarettes Smokeless tobacco user: chewing tobacco alcohol intake: never ROS ROS ED Musculoskeletal Musculoskeletal: Reports other Details: Right foot pain Integumentary Reports Abrasions Neurologic Neurologic: Denies paresthesias or weakness Psychiatric Psychiatric: Denies anxiety or depression Hematologic/Lymphatic Hematologic/Lymphatic: Denies easy bleeding or easy bruising EXAM Physical Exam Const Vital Signs: 12/07/24 20:20 Temperature 97.8 F Temperature Source Temporal Pulse Rate 65 Respiratory Rate 18 Blood Pressure 124/80 H Blood Pressure Mean 94 Pulse Ox 100 Oxygen Delivery Method Room Air Positive well nourished and well developed General Appearance ED: well developed and NAD Resp normal respiratory effort Cardio regular rate and regular rhythm Cardio Narrative: 2+ DP pulse on the right Extremity normal to inspection and full ROM Extremity Narrative: No obvious deformity. Mild tenderness to palpation at the distal metacarpal most pronounced around the second metacarpal. Normal movement of the toes. Neuro oriented x3, moves all extremities and no sensory deficits noted Psych mental status grossly normal Skin Skin Narrative: Superficial abrasion approximately 3 mm in length at the distal aspect of the right second metatarsal (dorsal aspect). No active bleeding. Trauma: abrasion MDM MDM MDM Narrative Medical decision making narrative: Patient evaluated for right foot injury after heavy weight fell on it. Has associated abrasion. Protocol x-ray obtained. Differential includes foot contusion as well as metatarsal fracture. Patient neurovascular intact. Vital signs are normal. Has good blood flow with no signs of acute vascular abnormality. X-ray of the foot reviewed by myself does not show any acute fracture. Patient will be given outpatient podiatry referral as needed. Counseled on alternating NSAIDs and Tylenol. Given return precautions. Discharged home in stable condition. Radiography Diagnostic Testing: Clinical Impression(s) from Imaging Studies Foot X-Ray 12/07/24 20:54 IMPRESSION: No evidence of acute fracture or dislocation. Reading Location: [facility] Discharge Plan Triage Chief Complaint: Lower Extremity Injury ED Provider: Pat Escamilla Dx/Rx/DC Orders Clinical Impression: Contusion of foot, right, Abrasion of foot, right Instructions: ED Foot Contusion Prescriptions: No Action Ventolin HFA 90 mcg/actuation HFA aerosol inhaler 2 puff INHALATION Q6H PRN (Reason: Wheezing) ondansetron HCl [Zofran] 4 mg tablet 4 mg PO Q8H PRN (Reason: nausea and vomiting) Qty: 7 0RF albuterol sulfate 1 INHALER inhaler 1 - 2 puff INHALATION Q4H PRN PRN (Reason: Wheezing) Qty: 1 0RF Primary Care Provider: Care Physician,No Primary Referrals: David Jules DPM [Med Staff - Active Staff] - Care Physician,No Primary [Primary Care Provider] - Activity Restrictions/Additional Instructions: Elevate and ice the area. Alternate ibuprofen and Tylenol as needed for pain. There were no broken bones on your Xray today.. If continued have pain or issues please follow-up with podiatry. Print Language: Kinyarwanda Disposition Disposition: Home, Self Care
[2024-12-07 22:11] VITALS: BP 127/80; PULSE 62; RESP 16; TEMP 36.6; O2SAT 100
== END 2024-12-07 22:11 | disposition home or self-care (01) ==
PROVIDERS: Emergency Provider Emergency Medicine; Visit Provider Emergency Medicine
DX: S90.31XA Contusion of right foot, initial encounter (principal); S90.811A Abrasion, right foot, initial encounter; W22.8XXA Striking against or struck by other objects, initial encounter; Y92.89 Other specified places as the place of occurrence of the external cause; Z90.49 Acquired absence of other specified parts of digestive tract; F17.290 Nicotine dependence, other tobacco product, uncomplicated; F17.220 Nicotine dependence, chewing tobacco, uncomplicated
CPT/HCPCS: 73630; 99282